=== PATIENT | female | born 1955 | race African-American/Black ===

== ENCOUNTER 2016-09-11 17:25 | Inpatient (IN) | payer OTHER ==
[~2016-09-11] VITALS: Ht 165.1 cm; Wt 75.9 kg
[~2016-09-11 17:25] MED LIST: CARV25TA79 PO; CLIN-73 PO; CLON0.3T PO; COLCHICINE PO; GEMF600T PO; HYDR-3498 PO; IND50 PO; MECL12.574 PO; NITR-58 PO; SPIR25TA76 PO
[2016-09-11] MEDS ORDERED: SOD CHLORIDE 0.9% 1,000 ML IV STA (22:02)
[2016-09-11] MEDS ORDERED: morphine 4 MG/ML VIAL IV STA (22:02)
[2016-09-11] MEDS ORDERED: ONDANSETRON 4 MG INJ IV STA (22:02)
--- NOTE | 2016-09-11 22:41 | RADRPT ---
PROCEDURE: CT Abdomen and pelvis without contrast. CLINICAL INDICATION: Abdominal pain. TECHNIQUE: CT scan of the abdomen and pelvis was performed on the [employer]ivid[employer] LightSpeed 6 4 slice VCT scanner. Contiguous axial images using 2.5 mm slice thickness were obtained from the tamara ng bases to the ischial tuberosities without intravenous contrast. Coronal and sagittal reformatted images were also obtained. Images were reviewed on the PACS workstation. Exam CTD/vol = 12.77 mGy. Total exam DLP = 599.13 mGy-cm. COMPARISON: None. FINDINGS: Evaluation of the lung bases demonstrates a small calcified granuloma within the left lower lobe. Abdomen: The liver is normal in size. There is no focal mass or dilatation of the biliary tree. T he gallbladder is not distended. A small gallstone is identified. The spleen, pancreas and bilatera l adrenal glands are within normal limits. Bilateral kidneys are normal in size with a small cyst w ithin the upper pole of the left kidney. There is mild renal cortical scarring bilaterally. There is a 1 mm calculus within the lower pole of the left kidney. There is no radiopaque ureteral calcul us identified. There is no hydronephrosis or hydroureter. There is no retroperitoneal adenopathy. The abdominal aorta is of normal caliber. There is a distended appendix posterior to the cecum measuring up to 12 mm in diameter with minimal adjacent stranding. There is moderate retained stool within the colon. There is no bowel obstructi on or free air. There are few scattered colonic diverticuli without evidence of diverticulitis. Th ere is no ascites. Pelvis: The bladder is unremarkable. The uterus and adnexa are within normal limits. There is no significant pelvic adenopathy or free fluid. Evaluation of the osseous structures demonstrates no suspicious lytic or blastic lesion. IMPRESSION: Acute retrocecal appendicitis. Moderate retained stool within the colon. Few scattered colonic diverticuli without evidence of diverticulitis. Cholelithiasis. Nonobstructing left renal calculus. A call report was made to Dr. Carreno at 10:40 p.m. .Manjinder Kramer MD, Date Time Electronically viewed and signed by .Manjinder Kramer MD, on 09/11/2016 22:41 .T/
[2016-09-11 22:53] LABS: BASOPHIL # 0.2 10^3/ul (0.0-0.1); BASOPHILS % 2.4 % (0.0-2.0); EOSINOPHILS # 0.1 10^3/ul (0.0-0.5); EOSINOPHILS % 1.1 % (0.0-7.0); HEMATOCRIT 31.1 % (37.0-47.0); HEMOGLOBIN 10.2 g/dl (12.0-16.0); LYMPHOCYTES # 2.5 10^3/ul (0.8-2.9); LYMPHOCYTES % 38.9 % (15.0-51.0); MEAN CORPUSCULAR HEMOGLOBIN 29.1 pg (29.0-33.0); MEAN CORPUSCULAR HGB CONC 32.7 g/dl (32.0-37.0); MEAN CORPUSCULAR VOLUME 88.9 fl (82.0-101.0); MEAN PLATELET VOLUME 8.5 fl (7.4-10.4); MONOCYTE # 0.9 10^3/ul (0.3-0.9); MONOCYTES % 13.7 % (0.0-11.0); NEUTROPHIL # 2.8 10^3/ul (1.6-7.5); NEUTROPHILS % 43.9 % (39.0-77.0); PLATELET COUNT 216 10^3/UL (140-440); UNCORRECTED WBC 6.4 10^3/ul (4.8-10.8); WHITE BLOOD COUNT 6.4 10^3/ul (4.8-10.8)
[2016-09-11] MEDS ORDERED: CLON0.2T5 PO (22:54)
[2016-09-11] MEDS ORDERED: ZOLP10TA PO (22:55)
[2016-09-11] MEDS ORDERED: CARV25TA79 PO (22:56)
[2016-09-11 22:58] LABS: ALBUMIN 4.1 g/dl (3.3-4.9)
[2016-09-11 23:00] LABS: CREATININE 0.96 mg/dl (0.44-1.00)
[2016-09-11] MEDS ORDERED: CEFTRIAXONE 1 GM/50 ML (PMX) 50 ML IVPB ONE (23:00)
[2016-09-11] MEDS ORDERED: metroNIDAZOLE 500 MG/NS (PMX) 100 ML IVPB ONE (23:00)
[2016-09-11] MEDS ORDERED: SOD CHLORIDE 0.9% 1,000 ML IV ONE (23:00)
[2016-09-11 23:01] LABS: ALBUMIN/GLOBULIN RATIO 1.05; BILIRUBIN,INDIRECT 0.1 mg/dl (0-1.1); BILIRUBIN,TOTAL 0.1 mg/dl (0.2-1.3); CALCIUM 9.3 mg/dl (8.4-10.2)
[2016-09-11 23:05] LABS: CONDITION 1; LH ANALYZER COMMENTS 1
[2016-09-11] MEDS ORDERED: ACETAMINOPHEN 325 MG TAB PO PRN (23:30)
[2016-09-11] MEDS ORDERED: ONDANSETRON 4 MG INJ IV PRN (23:30)
[2016-09-11 23:41] LABS: INR 1.09; PROTIME 14.1 Sec (12.2-14.2); PT RATIO 1.1
[2016-09-11 23:47] LABS: PARTIAL THROMBOPLASTIN TIME 30.3 Sec (25.0-35.0)
[2016-09-12] VITALS (32 sets, daily range): BP systolic 132–217; BP diastolic 60–102; PULSE 50–78; RESP 15–23; Ht 165.1 cm; Wt 75.9 kg
[2016-09-12] MEDS ORDERED: morphine 10 MG INJ IM PRN (01:00)
[2016-09-12] MEDS: SOD CHLORIDE 0.9% 1,000 ML IV SCH ×2 (01:00→07:33)
[2016-09-12] MEDS ORDERED: morphine 2 MG INJ IV PRN ×2 (01:18→04:30)
[2016-09-12] MEDS: ONDANSETRON 4 MG INJ IV PRN ×3 (01:21→12:48)
[2016-09-12 05:32] LABS: BASOPHILS % 0.5 % (0.0-2.0); EOSINOPHILS # 0.1 10^3/ul (0.0-0.5); EOSINOPHILS % 1.4 % (0.0-7.0); HEMATOCRIT 28.8 % (37.0-47.0); HEMOGLOBIN 9.4 g/dl (12.0-16.0); LYMPHOCYTES # 2.6 10^3/ul (0.8-2.9); LYMPHOCYTES % 37.9 % (15.0-51.0); MEAN CORPUSCULAR HEMOGLOBIN 29.3 pg (29.0-33.0); MEAN CORPUSCULAR HGB CONC 32.8 g/dl (32.0-37.0); MEAN CORPUSCULAR VOLUME 89.1 fl (82.0-101.0); MEAN PLATELET VOLUME 8.9 fl (7.4-10.4); MONOCYTE # 0.7 10^3/ul (0.3-0.9); MONOCYTES % 10.8 % (0.0-11.0); NEUTROPHIL # 3.3 10^3/ul (1.6-7.5); NEUTROPHILS % 49.4 % (39.0-77.0); PLATELET COUNT 177 10^3/UL (140-440); RED BLOOD COUNT 3.23 10^6/ul (4.20-5.40); RED CELL DISTRIBUTION WIDTH 16.7 % (11.5-14.5); UNCORRECTED WBC 6.8 10^3/ul (4.8-10.8); WHITE BLOOD COUNT 6.8 10^3/ul (4.8-10.8)
[2016-09-12 05:48] LABS: POTASSIUM 3.8 mmol/L (3.5-5.1)
[2016-09-12 05:50] LABS: CREATININE 0.87 mg/dl (0.44-1.00)
[2016-09-12 05:51] LABS: CALCIUM 8.7 mg/dl (8.4-10.2)
[2016-09-12 05:57] LABS: CONDITION 1; LH ANALYZER COMMENTS 1
[2016-09-12] MEDS ORDERED: BUPIVACAINE 0.25%/EPI (SDV) 30 ML INJ ONE (07:38)
[2016-09-12] MEDS ORDERED: PIPER-TAZO 3.375 GM IV (PMX) 100 ML ONE (07:44)
[2016-09-12] MEDS ORDERED: MIDAZOLAM 1 MG/ML 2 ML INJ ONE (08:01)
[2016-09-12 09:06] LABS: ADD UMIC YES; URINE BILIRUBIN (Dip) NEGATIVE (NEGATIVE); URINE BLOOD (Dip) NEGATIVE (NEGATIVE); URINE COLOR LT. YELLOW (YELLOW); URINE GLUCOSE (Dip) NEGATIVE (NEGATIVE); URINE KETONES (Dip) NEGATIVE (NEGATIVE); URINE LEUKOCYTE ESTERASE (Dip) TRACE (NEGATIVE); URINE NITRITE (Dip) NEGATIVE (NEGATIVE); URINE TOTAL PROTEIN (Dip) NEGATIVE (NEGATIVE); URINE UROBILINOGEN (Dip) 0.2 E.U./dL (0.1-1.0)
[2016-09-12] MEDS ORDERED: FENTAnyl 50 MCG/ML VIAL IV PRN (09:30)
[2016-09-12] MEDS ORDERED: ONDANSETRON 4 MG INJ IV PRN (09:30)
[2016-09-12] MEDS ORDERED: MEPERIDINE 25 MG INJ IV PRN (09:30)
[2016-09-12] MEDS ORDERED: DIPHENHYDRAMINE 50 MG INJ IV PRN (09:30)
[2016-09-12] MEDS ORDERED: morphine (1 MG/ML) 10ML SYRINGE IV PRN ×2 (09:30)
[2016-09-12 09:33] LABS: SQUAMOUS EPITHELIAL CELL,UR OCCASIONAL; URINE RBCS 0-2 /HPF (0)
[2016-09-12] MEDS ORDERED: ONDANSETRON 4 MG INJ ONE (09:44)
[2016-09-12] MEDS ORDERED: PROPOFOL 20 ML ONE (09:44)
[2016-09-12] MEDS ORDERED: NEOSTIGMINE 3 MG/3 ML SYRINGE ONE (09:44)
[2016-09-12] MEDS ORDERED: LIDOCAINE 2% (SDV) 5 ML INJ ONE (09:44)
[2016-09-12] MEDS ORDERED: ROCURONIUM 50 MG INJ ONE (09:44)
[2016-09-12] MEDS ORDERED: GLYCOPYRROLATE 0.4 MG INJ ONE (09:44)
[2016-09-12] MEDS ORDERED: BISACODYL 10 MG SUPP PR PRN (10:00)
[2016-09-12] MEDS ORDERED: HYDROCODONE/APAP (5/325) TAB PO PRN (10:00)
[2016-09-12] MEDS ORDERED: NA PHOSPHATE/BIPHOS 133 ML ENEMA PR PRN (10:00)
[2016-09-12] MEDS ORDERED: hydrALAzine 20 MG INJ IV PRN (10:00)
[2016-09-12] MEDS ORDERED: hydrALAzine 20 MG INJ ONE (10:01)
--- NOTE | 2016-09-12 10:15 | HP ---
Date/Time of Note Date/Time of Note DATE: 09/12/16 TIME: 10:13 Assessment/Plan VTE Prophylaxis VTE Prophylaxis Intervention: LMWH Lines/Catheters IV Catheter Type (from [facility]): Peripheral IV Assessment/Plan Chief Complaint/Hosp Course 1) appendicitis - to have appendectomy - IV antibiotics Problems: HPI/ROS Admit Date/Time Admit Date/Time Sep 11, 2016 at 23:06 Hx of Present Illness Patient admitted for abdominal pain and was diagnosed with appendicitis per abdominal CT. Patient is away from room so unable to obtain further history PMH/Family/Social Past Medical History Unable to obtain history as patient is away from room, possibly having appendectomy Social History Unable to obtain Smoking Status: Never smoker Exam/Review of Systems Vital Signs Vitals Vital Signs Date Time Temp Pulse Resp B/P Pulse Ox O2 Delivery O2 Flow Rate FiO2 09/12/16 09:56 78 20 206/96 100 Mask 8.0 09/12/16 09:47 98.5 Intake and Output 09/11/16 09/11/16 09/12/16 15:00 23:00 07:00 Intake Total 1725 ml Output Total 800 ml Balance 925 ml Exam Exam Unable to examine patient as she is away from room Labs Result Diagram: 09/12/16 0416 09/12/16 0416 Medications Medications Current Medications Ondansetron HCl (Zofran Inj) 4 mg Q6H PRN IV NAUSEA AND/OR VOMITING Last administered on 09/12/16at 01:21; Admin Dose 4 MG; Start 09/12/16 at 01:00 Clonidine (Catapres) 0.1 mg Q6H PRN PO SBP greater than 160 Last administered on 09/12/16at 01:22; Admin Dose 0.1 MG; Start 09/12/16 at 01:00 Zolpidem Tartrate (Ambien) 5 mg HS PRN PO INSOMNIA; Start 09/12/16 at 01:00 Morphine Sulfate 2 mg 2 mg Q2H PRN IV PAIN Last administered on 09/12/16at 04: 41; Admin Dose 2 MG; Start 09/12/16 at 04:30 Potassium Chloride/Dextrose/ Sod Cl (D5-1/2ns + KCl 20 Meq) 1,000 ml @ 100 mls/ hr Q10H IV ; Start 09/12/16 at 09:40 Acetaminophen/ Hydrocodone Bitart (Rydal (5/325)) 1 tab Q4H PRN PO PAIN LEVEL 4 -7; Start 09/12/16 at 10:00 Acetaminophen/ Hydrocodone Bitart (Rydal (5/325)) 2 tab Q4H PRN PO PAIN LEVEL 7 -10; Start 09/12/16 at 10:00 Hydromorphone HCl (Dilaudid) 0.5 mg Q2 PRN IV PAIN; Start 09/12/16 at 10:00 Hydromorphone HCl (Dilaudid) 1 mg Q2 PRN IV PAIN; Start 09/12/16 at 10:00 Docusate Sodium (Colace) 100 mg BID PRN PO CONSTIPATION; Start 09/12/16 at 10: 00 Bisacodyl (Dulcolax Supp) 10 mg BID PRN [place] CONSTIPATION; Start 09/12/16 at 10: 00 Sodium Biphosphate/ Sodium Phosphate (Fleet Enema) 133 ml BID PRN [place] CONSTIPATION; Start 09/12/16 at 10:00 Famotidine (Pepcid Iv) 20 mg DAILY IV ; Start 09/13/16 at 09:00 Enoxaparin Sodium (Lovenox) 40 mg DAILY SC ; Start 09/13/16 at 09:00 ERNESTO SHEPPARD Sep 12, 2016 10:15
--- NOTE | 2016-09-12 10:33 | CONS ---
Date/Time of Note Date/Time of Note DATE: 09/12/16 TIME: 07:52 Assessment/Plan Assessment/Plan Additional Assessment/Plan [facility] INITIAL INPATIENT CONSULTATION NOTE ASSESSMENT AND PLAN: A very-pleasant 61-year-old lady with multiple comorbid issues (see below) admitted through the emergency department with diagnosis of acute appendicitis based on symptoms as well as CT scan. Patient reports having this pain for last 2 weeks and for this reason there is a small chance that this may not be appendicitis, but given the overall clinical picture, I believe that an appendectomy is indicated. I explained to the patient that there is a 5 % chance that her appendix might be normal but that clinically, we have enough reason to offer her an operation. I described the operation in detail as well as the risks, benefits, and alternatives and answered all the patient's questions to the best my ability. I believe that the patient appears to understand and agrees to proceed. Note that there was no family present during any my discussions with the patient. With above assessment, I've recommended the followin. To the operating room for above Thank you very much for having me involved in the care of this very pleasant lady and I'm certain her wonderful family. I will continue to follow her along with you closely and will be available to answer any questions at area code [phone]. TOTAL VISIT TIME: 45 minutes of which more than half was spent in [id number] discussion with the patient, as well as coordination of care between multiple physicians and providers. Disclaimer: Inadvertent spelling and grammatical errors are likely due to EHR/ dictation software use and do not reflect on the quality of delivered patient care. Also, please note that the electronic time recorded on this node does not necessarily reflect the actual time of the visit. PLACE OF SERVICE: [facility], preoperative area DATE OF CONSULTATION: 09/12/2016 HISTORY OF PRESENT ILLNESS: The patient is a very pleasant 61-year-old lady with multiple comorbid issues including gout, diet-controlled diabetes, hypertension and hyperlipidemia, and a number of other problems (see below) who was admitted through the emergency department with two-week history of right lower quadrant abdominal pain that worsened over the last 24 hours. No significant associated nausea or vomiting. No change in bowel or bladder habits or blood in the stool or urine. CT scan demonstrated thickened appendix. Last bowel movement was yesterday as well as flatus. No changes in hearing or vision, difficulty with breathing or swallowing, prior cardiopulmonary disease new skin rashes, joint pain, musculoskeletal disease, neurologic, psychiatric, or psychologic problems other than her normal. Patient described the pain as a right lower quadrant type pain without radiation, between 3 out of 10 currently after pain medications and mostly dull in character. At my visit, the patient did not have any significant pain complaints. PAST MEDICAL HISTORY 1. Gallop 2. Arthritis 3. Bilateral lower extremity hammertoes 4. Torn meniscus in the left knee 5. Chronic back pain 6. Hypertension 7. Hypercholesterolemia 8. Recurrent dizziness None. Hypertriglyceridemia 10. Abnormal Pap smear at age 30 with a negative colposcopy 11. History of hemorrhoids 12. Diet-controlled diabetes in the past 13. BMI 27.8 PAST SURGICAL HISTORY 1. Right carpal tunnel release 2. Toe surgeries on the right 3. Colonoscopy 02/28/2009 ALLERGIES: 1. PENICILLIN. 2. LATEX. 3 AMLODIPINE. 4. MARCELO INHIBITORS. MEDICATIONS Please see EMR. SOCIAL HISTORY: The patient lives with family. - Tob; occ ETOH; - IVDU FAMILY HISTORY: Stroke, heart attack. Maternal grandmother had leukopenia. There are no other significant medical, surgical or oncologic issues in the family as reported by the patient or reflected in the chart. REVIEW OF SYSTEMS: No other pertinent positives or pertinent negatives in a complete 14 point review of systems PHYSICAL EXAMINATION GENERAL: The patient appears to be a very pleasant young lady of - [place] descent lying in bed, appearing stated age, BMI 27.8 and otherwise in no acute distress. VITAL SIGNS: AVSS (please also see below) HEENT: Normocephalic and atraumatic. Extraocular muscles and hearing are grossly intact bilaterally and symmetrically. Sclerae are nonicteric. Oral cavity is clear; oral mucosa appear to be pink and moist. Dentition: Poor with several missing teeth and wearing dentures. NECK: Supple. There is no lymphadenopathy or JVD. There is no submental, submandibular or supraclavicular lymphadenopathy. CHEST: Rises symmetrically with each breath; patient is breathing comfortably. There are no audible wheezes, rales or rhonchi on the gross exam. HEART: Pulse is regular and palpable on the right wrist. Capillary refill is normal. Carotid pulses are palpable bilaterally and symmetrically in the neck. EXTREMITIES: Lower extremities contain no pitting edema around the ankles bilaterally and symmetrically. ABDOMEN: Abdomen is soft, mild to moderately tender to palpation in the right lower quadrant and nondistended. No evidence of ascites, organomegaly, caput medusae, engorged subcutaneous veins, or other abnormalities. There are no peritoneal signs or guarding. SKIN: Appears to be pink and feels warm to touch. NEUROLOGIC: Awake, alert, and follows commands appropriately. LABORATORY DATA: See below IMAGING: See electronic chart. Please note that I've personally reviewed all pertinent available images and I agree in general with their overall reported findings. Consultation Date/Type/Reason Admit Date/Time Sep 11, 2016 at 23:06 Social History Smoking Status: Never smoker Exam/Review of Systems Vital Signs Vitals Vital Signs Date Time Temp Pulse Resp B/P Pulse Ox O2 Delivery O2 Flow Rate FiO2 09/12/16 10:22 66 16 170/86 100 Nasal Cannula 2.0 09/12/16 09:47 98.5 Intake and Output 09/11/16 09/11/16 09/12/16 15:00 23:00 07:00 Intake Total 1725 ml Output Total 800 ml Balance 925 ml Results Result Diagram: 09/12/16 0416 09/12/16 0416 Results 24 hrs Laboratory Tests Test 09/11/16 22:40 09/12/16 04:16 Activated Partial Thromboplast Time 30.3 Alanine Aminotransferase (ALT/SGPT) 14 Albumin 4.1 Albumin/Globulin Ratio 1.05 Alkaline Phosphatase 63 Anion Gap 17 H 15 Aspartate Amino Transf (AST/SGOT) 24 Basophils # 0.2 H 0.0 Basophils % 2.4 H 0.5 Blood Morphology Comment Blood Urea Nitrogen 19 15 Calcium Level 9.3 8.7 Carbon Dioxide Level 26 25 Chloride Level 103 107 Creatinine 0.96 0.87 Direct Bilirubin 0.00 Eosinophils # 0.1 0.1 Eosinophils % 1.1 1.4 Globulin 3.90 H Glucose Level 83 86 Hematocrit 31.1 L 28.8 L Hemoglobin 10.2 L 9.4 L INR International Normalized Ratio 1.09 Indirect Bilirubin 0.1 Lipase 366 H Lymphocytes # 2.5 2.6 Lymphocytes % 38.9 37.9 Mean Corpuscular Hemoglobin 29.1 29.3 Mean Corpuscular Hemoglobin Concent 32.7 32.8 Mean Corpuscular Volume 88.9 89.1 Mean Platelet Volume 8.5 8.9 Monocytes # 0.9 0.7 Monocytes % 13.7 H 10.8 Neutrophils # 2.8 3.3 Neutrophils % 43.9 49.4 Nucleated Red Blood Cells # 0.0 0.0 Nucleated Red Blood Cells % 0.0 0.0 Platelet Count 216 # 177 Potassium Level 4.0 3.8 Prothrombin Time 14.1 Prothrombin Time Ratio 1.1 Red Blood Count 3.50 L 3.23 L Red Cell Distribution Width 17.0 H 16.7 H Sodium Level 142 143 Total Bilirubin 0.1 L Total Protein 8.0 White Blood Count 6.4 6.8 Medications Medications Current Medications Ondansetron HCl (Zofran Inj) 4 mg Q6H PRN IV NAUSEA AND/OR VOMITING Last administered on 09/12/16at 10:14; Admin Dose 4 MG; Start 09/12/16 at 01:00 Clonidine (Catapres) 0.1 mg Q6H PRN PO SBP greater than 160 Last administered on 09/12/16at 01:22; Admin Dose 0.1 MG; Start 09/12/16 at 01:00 Zolpidem Tartrate (Ambien) 5 mg HS PRN PO INSOMNIA; Start 09/12/16 at 01:00 Morphine Sulfate 2 mg 2 mg Q2H PRN IV PAIN Last administered on 09/12/16at 04: 41; Admin Dose 2 MG; Start 09/12/16 at 04:30 Potassium Chloride/Dextrose/ Sod Cl (D5-1/2ns + KCl 20 Meq) 1,000 ml @ 100 mls/ hr Q10H IV ; Start 09/12/16 at 09:40 Acetaminophen/ Hydrocodone Bitart (Cochise (5/325)) 1 tab Q4H PRN PO PAIN LEVEL 4 -7; Start 09/12/16 at 10:00 Acetaminophen/ Hydrocodone Bitart (Cochise (5/325)) 2 tab Q4H PRN PO PAIN LEVEL 7 -10; Start 09/12/16 at 10:00 Hydromorphone HCl (Dilaudid) 0.5 mg Q2 PRN IV PAIN; Start 09/12/16 at 10:00 Hydromorphone HCl (Dilaudid) 1 mg Q2 PRN IV PAIN; Start 09/12/16 at 10:00 Docusate Sodium (Colace) 100 mg BID PRN PO CONSTIPATION; Start 09/12/16 at 10: 00 Bisacodyl (Dulcolax Supp) 10 mg BID PRN [place] CONSTIPATION; Start 09/12/16 at 10: 00 Sodium Biphosphate/ Sodium Phosphate (Fleet Enema) 133 ml BID PRN [place] CONSTIPATION; Start 09/12/16 at 10:00 Famotidine (Pepcid Iv) 20 mg DAILY IV ; Start 09/13/16 at 09:00 Enoxaparin Sodium 40 mg 40 mg DAILY SC ; Start 09/13/16 at 09:00 Ceftriaxone Sodium 50 ml @ 100 mls/hr Q24H IVPB ; Start 09/12/16 at 10:30; Status UNV Metronidazole (Flagyl 500 Mg (Pmx)) 100 ml @ 100 mls/hr Q6 IVPB ; Start at 12:00 NUBIA VILLAR M.D. Sep 12, 2016 10:33
--- NOTE | 2016-09-12 10:38 | OPR ---
Date/Time of Note Date/Time of Note DATE: 09/12/16 TIME: 10:37 Operative Report Operative Findings [facility] INPATIENT OPERATIVE NOTE PLACE OF SERVICE: [facility] DATE OF SURGERY: 09/12/2016 PREOPERATIVE DIAGNOSIS: 1. Acute appendicitis 2. Arthritis 3. Bilateral lower extremity hammertoes 4. Torn meniscus in the left knee 5. Chronic back pain 6. Hypertension 7. Hypercholesterolemia 8. Recurrent dizziness None. Hypertriglyceridemia 10. Abnormal Pap smear at age 30 with a negative colposcopy 11. History of hemorrhoids 12. Diet-controlled diabetes in the past 13. BMI 27.8 14. Gout 15. Right carpal tunnel release 16. Toe surgeries on the right 17. Colonoscopy 02/28/2009 POSTOPERATIVE DIAGNOSIS: 1. Acute on chronic appendicitis 2. Arthritis 3. Bilateral lower extremity hammertoes 4. Torn meniscus in the left knee 5. Chronic back pain 6. Hypertension 7. Hypercholesterolemia 8. Recurrent dizziness None. Hypertriglyceridemia 10. Abnormal Pap smear at age 30 with a negative colposcopy 11. History of hemorrhoids 12. Diet-controlled diabetes in the past 13. BMI 27.8 14. Gout 15. Right carpal tunnel release 16. Toe surgeries on the right 17. Colonoscopy 02/28/2009 OPERATION: 1. Laparoscopic appendectomy 2. Repair of umbilical hernia that was incidentally discovered during the operation SURGEON: Nubia Meza M.D. VBA DEVELOPER: Dawit ANESTHESIA: General endotracheal tube anesthesia ANESTHESIOLOGIST: Nilda Bonner M.D. BRIEF SUMMARY: An otherwise uncomplicated laparoscopic appendectomy was performed with findings of non-perforated acute on chronic retrocecal appendicitis. BRIEF HISTORY: The patient is a very pleasant 61-year-old lady with multiple comorbid issues (see below) admitted through the emergency department with diagnosis of acute appendicitis based on symptoms as well as CT scan. Patient reports having this pain for last 2 weeks and for this reason there is a small chance that this may not be appendicitis, but given the overall clinical picture , I believe that an appendectomy is indicated. I explained to the patient that there is a 5% chance that her appendix might be normal but that clinically, we have enough reason to offer her an operation. I described the operation in detail as well as the risks, benefits, and alternatives and answered all the patient's questions to the best my ability. I believe that the patient appears to understand and agrees to proceed. Note that there was no family present during any my discussions with the patient. For a detailed report of my consultation with patient, please refer to my separate consultation note. STATEMENT OF THE INFORMED CONSENT: The patient appeared to understand the risks of the operation to include, but not be limited to risk of postoperative pain and scar tissue, possible infection or bleeding requiring other interventions such as opening the wound, placement of drainage catheters, or other operative interventions; possible injury to surrounding to structures including bowel, bladder, bile duct, or blood vessels, or solid organs such as liver, kidney, or pancreas requiring other interventions or procedures; possible leakage of bowel from anastomotic sites or suture lines causing significant increase in morbidity and mortality and requiring multiple interventions including but not limited to, placement of drainage catheters, imaging studies, as well as operative interventions; possible other source of sepsis such as urinary tract infections or pneumonias, or other sources of potentially life threatening problems such as deep venous thrombus formation causing pulmonary embolism, myocardial arrhythmias and infarctions, and even . After careful consideration of all their options, the patient and family appeared to understand and wished to proceed with surgery. DESCRIPTION OF PROCEDURE: After obtaining informed consent, the patient was brought into the operating room and was placed in a normal supine position, where successful general endotracheal tube anesthesia was performed. Intravenous access was already in place and intravenous antimicrobials had been appropriately chosen and dosed prior to the operation. The patient's abdominal skin was prepped and draped from the nipple line down to the level of the upper thighs in the usual sterile fashion. We then called a surgical time-out where the patient's identification, date of , nature of the operation, allergies , presence of intravenous antimicrobials, presence of needed equipment, and any other concerns were reviewed and agreed upon by all members of the operating room team. We then started the operation by placing a 5 mm skin incision in the left lower quadrant and then introduced a 5 mm [employer] trocar into the peritoneal space, visualizing all the layers of the abdominal wall as we entered. Note that there was no indication of any injury to underlying structures with our entry into the peritoneal space. We insufflated the abdominal cavity to a maximum pressure of 15 mmHg and again inspected the area of insertion and ensured no obvious injury to underlying structures prior to inspecting the abdominal cavity and showing no obvious pus, bowel contents, or other abnormal features. We could not see the appendix very well. We could see that the patient had a 3 mm umbilical hernia as well. We, therefore, injected the future sites of our other trocars with 0.25% Marcaine with epinephrine and placed a 5 mm [employer] trocar into the midline suprapubic area, taking care not to injure the bladder. Note that the patient had not urinated prior to the operation, and bladder was somewhat full. We also placed a 12 mm trocar in the umbilical midline area, all under direct visualization. With our instruments in place, we had excellent visualization and access to the right lower quadrant. We then identified the appendix, which was inflamed but had a normal base coming out of the cecum. It appeared to be retrocecal and the distal portion of the appendix was adhesed onto the body of the cecum. I then went ahead and used judicious amount of cautery as well as mostly blunt dissection to circumferentially isolate the base of the appendix and then transected this using one firing of the white load of the Endo-DALY stapler. We also repeated the firing on the mesentery of the appendix after lysis of adhesions using cautery and blunt dissection to free the body of the appendix attachments onto the cecum, and completely disconnected the organ from the colon, delivered this out through the 12 mm trocar site inside of an EndoCatch bag without having to enlarge the fascial defect as well as without contaminating the wound. The specimen was sent to Pathology for further analysis. We then ensured adequate hemostasis and bile stasis, removed all our equipment including the pneumoperitoneum from the abdominal cavity prior to closing the infraumbilical fascia after we freed up the edges of the hernia defect with cautery, followed by closure with with 1 [id number] 0 Vicryl suture on a UR-6 needle, washing the wounds with copious amounts of normal saline, injecting the initial insertion point of the trocar with 0.25% Marcaine with epinephrine, and then closing the skin using interrupted 4-0 Monocryl sutures. Light dressing was then applied. At the end of the operation, both the sponge count and needle count were reportedly correct x2. The patient tolerated the procedure without any reported complications. ESTIMATED BLOOD LOSS: 5 mL BLOOD OR BLOOD PRODUCT TRANSFUSIONS: None to my knowledge. SPECIMENS: 1. Appendix COMPLICATIONS: None. DISPOSITION: Recovery area. Disclaimer: Inadvertent spelling and grammatical errors are likely due to EHR/ dictation software use and do not reflect on the quality of delivered patient care. NUBIA MEZA M.D. Sep 12, 2016 10:38
[2016-09-12] MEDS: D5W-0.45 NACL + KCL 20 MEQ 1,000 ML IV SCH ×2 (12:42→19:40)
[2016-09-12] MEDS: HYDROmorphONE 1 MG/ML SYG IV PRN ×2 (12:48→20:47)
[2016-09-12] MEDS: metroNIDAZOLE 500 MG/NS (PMX) 100 ML IVPB SCH ×2 (12:48→17:48)
[2016-09-12] MEDS: DOCUSATE SODIUM 100 MG CAP PO PRN (14:24)
[2016-09-12] MEDS: HYDROCODONE/APAP (5/325) TAB PO PRN (15:43)
[2016-09-12] MEDS: LORAZEPAM 2 MG INJ IV PRN (15:45)
[2016-09-12] MEDS: CEFTRIAXONE 1 GM/50 ML (PMX) 50 ML IVPB SCH (23:27)
[2016-09-13] MEDS: HYDROmorphONE 1 MG/ML SYG IV PRN ×6 (00:43→21:16)
[2016-09-13] MEDS: metroNIDAZOLE 500 MG/NS (PMX) 100 ML IVPB SCH ×4 (00:45→18:34)
[2016-09-13 01:00] VITALS: BP 132/58; PULSE 62; RESP 18
[2016-09-13] MEDS: D5W-0.45 NACL + KCL 20 MEQ 1,000 ML IV SCH ×2 (01:02→16:22)
[2016-09-13 05:14] LABS: EOSINOPHILS # 0.1 10^3/ul (0.0-0.5); EOSINOPHILS % 2.1 % (0.0-7.0); HEMOGLOBIN 9.3 g/dl (12.0-16.0); LYMPHOCYTES # 1.8 10^3/ul (0.8-2.9); LYMPHOCYTES % 33.5 % (15.0-51.0); MEAN CORPUSCULAR HEMOGLOBIN 29.5 pg (29.0-33.0); MEAN CORPUSCULAR HGB CONC 33.2 g/dl (32.0-37.0); MEAN CORPUSCULAR VOLUME 88.8 fl (82.0-101.0); MEAN PLATELET VOLUME 8.5 fl (7.4-10.4); MONOCYTE # 0.6 10^3/ul (0.3-0.9); MONOCYTES % 10.7 % (0.0-11.0); NEUTROPHIL # 2.9 10^3/ul (1.6-7.5); NEUTROPHILS % 53.7 % (39.0-77.0); PLATELET COUNT 191 10^3/UL (140-440); RED BLOOD COUNT 3.15 10^6/ul (4.20-5.40); UNCORRECTED WBC 5.3 10^3/ul (4.8-10.8); WHITE BLOOD COUNT 5.3 10^3/ul (4.8-10.8)
[2016-09-13 05:43] LABS: CREATININE 0.85 mg/dl (0.44-1.00)
[2016-09-13 06:00] VITALS: BP 150/67; PULSE 68; RESP 18
[2016-09-13 06:33] LABS: CONDITION 1; LH ANALYZER COMMENTS 1; NUCLEATED RED BLOOD CELLS # 0.1 10^3/ul (0.0-0.0)
[2016-09-13 08:38] VITALS: BP 133/60; RESP 18
[2016-09-13] MEDS: FAMOTIDINE 20 MG INJ IV SCH (09:05)
[2016-09-13] MEDS: ENOXAPARIN 40 MG/0.4 ML SYG SC SCH (09:07)
[2016-09-13] MEDS: HYDROCODONE/APAP (5/325) TAB PO PRN ×3 (09:28→23:40)
[2016-09-13] MEDS: ONDANSETRON 4 MG INJ IV PRN (11:27)
--- NOTE | 2016-09-13 12:11 | PN ---
Date/Time of Note Date/Time of Note DATE: 09/13/16 TIME: 12:07 Assessment/Plan Lines/Catheters IV Catheter Type (from Nrs): Peripheral IV Assessment/Plan Assessment/Plan [facility] Progress Note Date of Service: 09/13/16 Today's Impression & Plan: Overall doing well post op without major issues. No major wound problems. Patient still has significant amount of abdominal pain and in my opinion, could benefit from 1 more day in the hospital. With above assessment, I've recommended the following for today: 1. Keep in-house 2. Treat pain 3. Increase activity 4. Increase incentive spirometry 5. Possible discharge plans for tomorrow 6. Please include the following in the patient's discharge instructions: "Please call [phone] if any of fever, nausea, vomiting, discharge from wound, wound redness, increase or sudden pain, blood in stool or vomit, or any other unusual signs or symptoms. Also, please call the same number in a few days to schedule an appointment for your follow up visit. Patient may remove dressings tomorrow. Showers OK starting tomorrow. No swimming , hot tub or bath for 2 weeks. No lifting more than 25 lbs for 8 weeks." Thank you again for your great care of this very pleasant patient and wonderful family. If there are any questions, please feel free to call me at [phone]. TOTAL VISIT TIME: 20 minutes of which more than half was spent in [id number] discussion with the patient, possibly including family, as well as coordination of care between multiple physicians and providers. Disclaimer: Inadvertent spelling or grammatical errors are likely due to EHR/ dictation software use and do not reflect on the overall quality of patient care. Updated Clinical Summary: The patient is a very pleasant 61-year-old lady with multiple comorbid issues ( see below) admitted through the emergency department with diagnosis of acute appendicitis based on symptoms as well as CT scan. Patient reports having this pain for last 2 weeks and for this reason there is a small chance that this may not be appendicitis, but given the overall clinical picture, I believe that an appendectomy is indicated. I explained to the patient that there is a 5% chance that her appendix might be normal but that clinically, we have enough reason to offer her an operation. S/p an otherwise uncomplicated laparoscopic appendectomy and repair of an incidentally discovered umbilical hernia on 09/12 with findings of non-perforated acute on chronic retrocecal appendicitis. Comorbidities/PMHx List: 1. Acute on chronic appendicitis, s/p an otherwise uncomplicated laparoscopic appendectomy and repair of an incidentally discovered umbilical hernia on 09/12 with findings of non-perforated acute on chronic retrocecal appendicitis. 2. Arthritis 3. Bilateral lower extremity hammertoes 4. Torn meniscus in the left knee 5. Chronic back pain 6. Hypertension 7. Hypercholesterolemia 8. Recurrent dizziness None. Hypertriglyceridemia 10. Abnormal Pap smear at age 30 with a negative colposcopy 11. History of hemorrhoids 12. Diet-controlled diabetes in the past 13. BMI 27.8 14. Gout 15. Right carpal tunnel release 16. Toe surgeries on the right 17. Colonoscopy 02/28/2009 Subjective: No major events or complaints; no abd pain and under control with medications; no n/v/d; no sob or cp; + flatus; + BM and normal; + activity Objective: Vitals: See below Exam: GENERAL: On exam, the patient was sitting in a chair and appeared to be comfortable and in no acute distress. ABDOMEN: Soft, tender to palpation around the incisions and in the right lower quadrant and nondistended. Incisions are clean, dry and intact without any evidence of erythema, edema, discharge, or hernia. There are no peritoneal signs or guarding. SKIN: Skin appears to be pink and feels warm to touch. NEUROLOGIC: Patient is awake, alert, and follows commands appropriately. Exam/Review of Systems Vital Signs Vitals Vital Signs Date Time Temp Pulse Resp B/P Pulse Ox O2 Delivery O2 Flow Rate FiO2 09/13/16 08:38 97.8 67 18 133/60 98 09/13/16 06:00 Room Air 09/12/16 19:40 2.0 Intake and Output 09/12/16 09/12/16 09/13/16 15:00 23:00 07:00 Intake Total 800 ml 740 ml 1500 ml Output Total 5 ml 200 ml Balance 795 ml 540 ml 1500 ml Results Result Diagram: 09/13/16 0425 09/13/16 0425 NUBIA VILLAR M.D. Sep 13, 2016 12:11
--- NOTE | 2016-09-13 12:46 | PN ---
Date/Time of Note Date/Time of Note DATE: 09/13/16 TIME: 12:45 Assessment/Plan VTE Prophylaxis VTE Prophylaxis Intervention: LMWH Lines/Catheters IV Catheter Type (from Nrsg): Peripheral IV Assessment/Plan Chief Complaint/Hosp Course 1) appendicitis - to have appendectomy - IV antibiotics 2) neck pain - reassure Problems: Subjective 24 Hr Interval Summary Free Text/Dictation Patient complain of right neck pain, post op pain as well Exam/Review of Systems Vital Signs Vitals Vital Signs Date Time Temp Pulse Resp B/P Pulse Ox O2 Delivery O2 Flow Rate FiO2 09/13/16 08:38 97.8 67 18 133/60 98 09/13/16 06:00 Room Air 09/12/16 19:40 2.0 Intake and Output 09/12/16 09/12/16 09/13/16 15:00 23:00 07:00 Intake Total 800 ml 740 ml 1500 ml Output Total 5 ml 200 ml Balance 795 ml 540 ml 1500 ml Exam Constitutional: well developed Neck: supple Respiratory: clear to auscultation Cardiovascular: regular rate and rhythm Gastrointestinal: non-tender, soft Extremities: normal pulses Results Result Diagram: 09/13/16 0425 09/13/16 0425 Results 24 hrs Laboratory Tests Test 09/13/16 04:25 Anion Gap 16 Basophils # 0.0 Basophils % 0.0 Blood Morphology Comment Blood Urea Nitrogen 10 Calcium Level 9.0 Carbon Dioxide Level 25 Chloride Level 102 Creatinine 0.85 Eosinophils # 0.1 Eosinophils % 2.1 Glucose Level 111 Hematocrit 28.0 L Hemoglobin 9.3 L Lymphocytes # 1.8 Lymphocytes % 33.5 Mean Corpuscular Hemoglobin 29.5 Mean Corpuscular Hemoglobin Concent 33.2 Mean Corpuscular Volume 88.8 Mean Platelet Volume 8.5 Monocytes # 0.6 Monocytes % 10.7 Neutrophils # 2.9 Neutrophils % 53.7 Nucleated Red Blood Cells # 0.1 H Nucleated Red Blood Cells % 2.0 H Platelet Count 191 Potassium Level 4.0 Red Blood Count 3.15 L Red Cell Distribution Width 17.0 H Sodium Level 139 White Blood Count 5.3 # Medications Medications Current Medications Ondansetron HCl (Zofran Inj) 4 mg Q6H PRN IV NAUSEA AND/OR VOMITING Last administered on 09/13/16t 11:27; Admin Dose 4 MG; Start 09/12/16 at 01:00 Clonidine (Catapres) 0.1 mg Q6H PRN PO SBP greater than 160 Last administered on 09/12/16at 14:24; Admin Dose 0.1 MG; Start 09/12/16 at 01:00 Zolpidem Tartrate (Ambien) 5 mg HS PRN PO INSOMNIA; Start 09/12/16 at 01:00 Morphine Sulfate 2 mg 2 mg Q2H PRN IV PAIN Last administered on 09/12/16at 04: 41; Admin Dose 2 MG; Start 09/12/16 at 04:30 Potassium Chloride/Dextrose/ Sod Cl (D5-1/2ns + KCl 20 Meq) 1,000 ml @ 100 mls/ hr Q10H IV Last administered on 09/13/16 01:02; Admin Dose 100 MLS/HR; Start 09/12/16 at 09:40 Acetaminophen/ Hydrocodone Bitart ([place] (5/325)) 1 tab Q4H PRN PO PAIN LEVEL 4 -7; Start 09/12/16 at 10:00 Acetaminophen/ Hydrocodone Bitart ([place] (5/325)) 2 tab Q4H PRN PO PAIN LEVEL 7 -10 Last administered on 09/13/16 09:28; Admin Dose 2 TAB; Start 09/12/16 at 10 :00 Hydromorphone HCl (Dilaudid) 0.5 mg Q2 PRN IV PAIN Last administered on 11:18; Admin Dose 0.5 MG; Start 09/12/16 at 10:00 Hydromorphone HCl (Dilaudid) 1 mg Q2 PRN IV PAIN Last administered on 09/13/16 06:27; Admin Dose 1 MG; Start 09/12/16 at 10:00 Docusate Sodium (Colace) 100 mg BID PRN PO CONSTIPATION Last administered on at 14:24; Admin Dose 100 MG; Start 09/12/16 at 10:00 Bisacodyl (Dulcolax Supp) 10 mg BID PRN MD CONSTIPATION; Start 09/12/16 at 10: 00 Sodium Biphosphate/ Sodium Phosphate (Fleet Enema) 133 ml BID PRN MD CONSTIPATION; Start 09/12/16 at 10:00 Famotidine (Pepcid Iv) 20 mg DAILY IV Last administered on 09/13/16 09:05; Admin Dose 20 MG; Start 09/13/16 at 09:00 Enoxaparin Sodium 40 mg 40 mg DAILY SC Last administered on 09/13/16 09:07; Admin Dose 40 MG; Start 09/13/16 at 09:00 Ceftriaxone Sodium 50 ml @ 100 mls/hr Q24H IVPB Last administered on at 23:27; Admin Dose 100 MLS/HR; Start 09/12/16 at 23:00 Metronidazole (Flagyl 500 Mg (Pmx)) 100 ml @ 100 mls/hr Q6 IVPB Last administered on 09/13/16 12:10; Admin Dose 100 MLS/HR; Start 09/12/16 at 12:00 Lorazepam (Ativan) 0.5 mg Q4H PRN IV ANXIETY Last administered on 09/12/16at 15 :45; Admin Dose 0.5 MG; Start 09/12/16 at 16:00 Hydralazine HCl (Apresoline) 25 mg Q6H PRN PO ELEVATED BLOOD PRESSURE Last administered on 09/12/16at 15:44; Admin Dose 25 MG; Start 09/12/16 at 16:00 ERNESTO SHEPPARD Sep 13, 2016 12:46
[2016-09-13 19:34] VITALS: BP 188/85; RESP 18
[2016-09-13] MEDS: CEFTRIAXONE 1 GM/50 ML (PMX) 50 ML IVPB SCH (23:04)
[2016-09-14] VITALS (10 sets, daily range): BP systolic 133–197; BP diastolic 61–92; PULSE 64–78; RESP 18–20
[2016-09-14] MEDS: metroNIDAZOLE 500 MG/NS (PMX) 100 ML IVPB SCH ×5 (00:41→23:44)
[2016-09-14] MEDS: D5W-0.45 NACL + KCL 20 MEQ 1,000 ML IV SCH ×3 (01:40→21:40)
[2016-09-14] MEDS: HYDROmorphONE 1 MG/ML SYG IV PRN ×4 (02:58→20:06)
[2016-09-14] MEDS: HYDROCODONE/APAP (5/325) TAB PO PRN ×4 (06:09→22:45)
[2016-09-14] MEDS: ENOXAPARIN 40 MG/0.4 ML SYG SC SCH (09:09)
[2016-09-14] MEDS: DOCUSATE SODIUM 100 MG CAP PO PRN (09:12)
[2016-09-14] MEDS: FAMOTIDINE 20 MG INJ IV SCH (09:13)
--- NOTE | 2016-09-14 11:44 | PN ---
Date/Time of Note Date/Time of Note DATE: 09/14/16 TIME: 11:43 Assessment/Plan Lines/Catheters IV Catheter Type (from Nrsg): Saline Lock Assessment/Plan Assessment/Plan [facility] Progress Note Date of Service: 09/14/16 Today's Impression & Plan: Overall doing well post op without major issues. No major wound problems. Abd pain much better. With above assessment, I've recommended the following for today: 1. Ok to d/c from my standpoint 2. Please include the following in the patient's discharge instructions: "Please call [phone] if any of fever, nausea, vomiting, discharge from wound, wound redness, increase or sudden pain, blood in stool or vomit, or any other unusual signs or symptoms. Also, please call the same number in a few days to schedule an appointment for your follow up visit. Patient may remove dressings tomorrow. Showers OK starting tomorrow. No swimming , hot tub or bath for 2 weeks. No lifting more than 25 lbs for 8 weeks." Thank you again for your great care of this very pleasant patient and wonderful family. If there are any questions, please feel free to call me at [phone]. TOTAL VISIT TIME: 20 minutes of which more than half was spent in [id number] discussion with the patient, possibly including family, as well as coordination of care between multiple physicians and providers. Disclaimer: Inadvertent spelling or grammatical errors are likely due to EHR/ dictation software use and do not reflect on the overall quality of patient care. Updated Clinical Summary: The patient is a very pleasant 61-year-old lady with multiple comorbid issues ( see below) admitted through the emergency department with diagnosis of acute appendicitis based on symptoms as well as CT scan. Patient reports having this pain for last 2 weeks and for this reason there is a small chance that this may not be appendicitis, but given the overall clinical picture, I believe that an appendectomy is indicated. I explained to the patient that there is a 5% chance that her appendix might be normal but that clinically, we have enough reason to offer her an operation. S/p an otherwise uncomplicated laparoscopic appendectomy and repair of an incidentally discovered umbilical hernia on 09/12 with findings of non-perforated acute on chronic retrocecal appendicitis. Comorbidities/PMHx List: 1. Acute on chronic appendicitis, s/p an otherwise uncomplicated laparoscopic appendectomy and repair of an incidentally discovered umbilical hernia on 09/12 with findings of non-perforated acute on chronic retrocecal appendicitis. 2. Arthritis 3. Bilateral lower extremity hammertoes 4. Torn meniscus in the left knee 5. Chronic back pain 6. Hypertension 7. Hypercholesterolemia 8. Recurrent dizziness None. Hypertriglyceridemia 10. Abnormal Pap smear at age 30 with a negative colposcopy 11. History of hemorrhoids 12. Diet-controlled diabetes in the past 13. BMI 27.8 14. Gout 15. Right carpal tunnel release 16. Toe surgeries on the right 17. Colonoscopy 02/28/2009 Subjective: No major events or complaints; no mahor abd pain and under control with medications; no n/v/d; no sob or cp; + flatus; + BM and normal; + activity Objective: Vitals: See below Exam: GENERAL: On exam, the patient was sitting in a chair and appeared to be comfortable and in no acute distress. ABDOMEN: Soft, less tender to palpation around the incisions and in the right lower quadrant and nondistended. Incisions are clean, dry and intact without any evidence of erythema, edema, discharge, or hernia. There are no peritoneal signs or guarding. SKIN: Skin appears to be pink and feels warm to touch. NEUROLOGIC: Patient is awake, alert, and follows commands appropriately. Exam/Review of Systems Vital Signs Vitals Vital Signs Date Time Temp Pulse Resp B/P Pulse Ox O2 Delivery O2 Flow Rate FiO2 09/14/16 11:36 69 133/61 09/14/16 08:55 98.1 18 95 09/14/16 00:48 Room Air 09/12/16 19:40 2.0 Intake and Output 09/13/16 09/13/16 09/14/16 15:00 23:00 07:00 Intake Total 100 ml 1600 ml 2350 ml Output Total 1400 ml 1600 ml Balance 100 ml 200 ml 750 ml Results Result Diagram: 09/13/16 0425 09/13/16 0425 NUBIA VILLAR M.D. Sep 14, 2016 11:44
--- NOTE | 2016-09-14 13:36 | PN ---
Date/Time of Note Date/Time of Note DATE: 09/14/16 TIME: 13:34 Assessment/Plan VTE Prophylaxis VTE Prophylaxis Intervention: other Lines/Catheters IV Catheter Type (from Nrsg): Saline Lock Assessment/Plan Chief Complaint/Hosp Course 1) appendicitis - s/p appendectomy - post operative care 2) hypertension - monitor Problems: Subjective 24 Hr Interval Summary Free Text/Dictation Patient complain of pain in left leg related to gout Exam/Review of Systems Vital Signs Vitals Vital Signs Date Time Temp Pulse Resp B/P Pulse Ox O2 Delivery O2 Flow Rate FiO2 09/14/16 11:36 69 133/61 09/14/16 08:55 98.1 18 95 09/14/16 00:48 Room Air 09/12/16 19:40 2.0 Intake and Output 09/13/16 09/13/16 09/14/16 15:00 23:00 07:00 Intake Total 100 ml 1600 ml 2350 ml Output Total 1400 ml 1600 ml Balance 100 ml 200 ml 750 ml Exam Constitutional: well developed Neck: supple Respiratory: clear to auscultation Cardiovascular: regular rate and rhythm Gastrointestinal: non-tender, soft Results Result Diagram: 09/13/165 09/13/16 0425 Medications Medications Current Medications Ondansetron HCl (Zofran Inj) 4 mg Q6H PRN IV NAUSEA AND/OR VOMITING Last administered on 09/13/16 11:27; Admin Dose 4 MG; Start 09/12/16 at 01:00 Clonidine (Catapres) 0.1 mg Q6H PRN PO SBP greater than 160 Last administered on 09/14/16 09:12; Admin Dose 0.1 MG; Start 09/12/16 at 01:00 Zolpidem Tartrate (Ambien) 5 mg HS PRN PO INSOMNIA; Start 09/12/16 at 01:00 Morphine Sulfate 2 mg 2 mg Q2H PRN IV PAIN Last administered on 09/12/16at 04: 41; Admin Dose 2 MG; Start 09/12/16 at 04:30 Potassium Chloride/Dextrose/ Sod Cl (D5-1/2ns + KCl 20 Meq) 1,000 ml @ 100 mls/ hr Q10H IV Last administered on 09/13/16 16:22; Admin Dose 100 MLS/HR; Start 09/12/16 at 09:40 Acetaminophen/ Hydrocodone Bitart ([place] (5/325)) 1 tab Q4H PRN PO PAIN LEVEL 4 -7; Start 09/12/16 at 10:00 Acetaminophen/ Hydrocodone Bitart ([place] (5/325)) 2 tab Q4H PRN PO PAIN LEVEL 7 -10 Last administered on 09/14/16 10:33; Admin Dose 2 TAB; Start 09/12/16 at 10 :00 Hydromorphone HCl (Dilaudid) 0.5 mg Q2 PRN IV PAIN Last administered on 21:16; Admin Dose 0.5 MG; Start 09/12/16 at 10:00 Hydromorphone HCl (Dilaudid) 1 mg Q2 PRN IV PAIN Last administered on 09/14/16 09:13; Admin Dose 1 MG; Start 09/12/16 at 10:00 Docusate Sodium (Colace) 100 mg BID PRN PO CONSTIPATION Last administered on 09:12; Admin Dose 100 MG; Start 09/12/16 at 10:00 Bisacodyl (Dulcolax Supp) 10 mg BID PRN [place] CONSTIPATION; Start 09/12/16 at 10: 00 Sodium Biphosphate/ Sodium Phosphate (Fleet Enema) 133 ml BID PRN DC CONSTIPATION; Start 09/12/16 at 10:00 Famotidine (Pepcid Iv) 20 mg DAILY IV Last administered on 09/14/16 09:13; Admin Dose 20 MG; Start 09/13/16 at 09:00 Enoxaparin Sodium 40 mg 40 mg DAILY SC Last administered on 09/14/16 09:09; Admin Dose 40 MG; Start 09/13/16 at 09:00 Ceftriaxone Sodium 50 ml @ 100 mls/hr Q24H IVPB Last administered on 09/13/16 23:04; Admin Dose 100 MLS/HR; Start 09/12/16 at 23:00 Metronidazole (Flagyl 500 Mg (Pmx)) 100 ml @ 100 mls/hr Q6 IVPB Last administered on 09/14/16 11:35; Admin Dose 100 MLS/HR; Start 09/12/16 at 12:00 Lorazepam (Ativan) 0.5 mg Q4H PRN IV ANXIETY Last administered on 09/12/16at 15 :45; Admin Dose 0.5 MG; Start 09/12/16 at 16:00 Hydralazine HCl (Apresoline) 25 mg Q6H PRN PO ELEVATED BLOOD PRESSURE Last administered on 09/14/16 10:33; Admin Dose 25 MG; Start 09/12/16 at 16:00 ERNESTO SHEPPARD Sep 14, 2016 13:35
[2016-09-14] MEDS: CEFTRIAXONE 1 GM/50 ML (PMX) 50 ML IVPB SCH (22:44)
[2016-09-15] VITALS (8 sets, daily range): BP systolic 127–179; BP diastolic 60–81; PULSE 76–86; RESP 17–20
[2016-09-15] MEDS: HYDROmorphONE 1 MG/ML SYG IV PRN ×4 (01:13→20:24)
[2016-09-15] MEDS: HYDROCODONE/APAP (5/325) TAB PO PRN ×5 (03:03→23:11)
[2016-09-15] MEDS: metroNIDAZOLE 500 MG/NS (PMX) 100 ML IVPB SCH ×3 (06:12→17:37)
[2016-09-15] MEDS: D5W-0.45 NACL + KCL 20 MEQ 1,000 ML IV SCH ×2 (07:40→16:51)
[2016-09-15] MEDS: FAMOTIDINE 20 MG INJ IV SCH (10:06)
[2016-09-15] MEDS: ENOXAPARIN 40 MG/0.4 ML SYG SC SCH (10:26)
--- NOTE | 2016-09-15 11:11 | PN ---
Date/Time of Note Date/Time of Note DATE: 09/15/16 TIME: 11:09 Assessment/Plan Lines/Catheters IV Catheter Type (from [facility]): Saline Lock Assessment/Plan Assessment/Plan [facility] Progress Note Date of Service: 09/15/16 Today's Impression & Plan: Overall doing well post op without major issues. No major wound problems. Abd benign. Kept inhouse for gout flare. With above assessment, I've recommended the following for today: 1. Ok to d/c from my standpoint 2. Will follow from periphery 3. Please include the following in the patient's discharge instructions: "Please call [phone] if any of fever, nausea, vomiting, discharge from wound, wound redness, increase or sudden pain, blood in stool or vomit, or any other unusual signs or symptoms. Also, please call the same number in a few days to schedule an appointment for your follow up visit. Patient may remove dressings tomorrow. Showers OK starting tomorrow. No swimming , hot tub or bath for 2 weeks. No lifting more than 25 lbs for 8 weeks." Thank you again for your great care of this very pleasant patient and wonderful family. If there are any questions, please feel free to call me at [phone]. TOTAL VISIT TIME: 20 minutes of which more than half was spent in [id number] discussion with the patient, possibly including family, as well as coordination of care between multiple physicians and providers. Disclaimer: Inadvertent spelling or grammatical errors are likely due to EHR/ dictation software use and do not reflect on the overall quality of patient care. Updated Clinical Summary: The patient is a very pleasant 61-year-old lady with multiple comorbid issues ( see below) admitted through the emergency department with diagnosis of acute appendicitis based on symptoms as well as CT scan. Patient reports having this pain for last 2 weeks and for this reason there is a small chance that this may not be appendicitis, but given the overall clinical picture, I believe that an appendectomy is indicated. I explained to the patient that there is a 5% chance that her appendix might be normal but that clinically, we have enough reason to offer her an operation. S/p an otherwise uncomplicated laparoscopic appendectomy and repair of an incidentally discovered umbilical hernia on 09/12 with findings of non-perforated acute on chronic retrocecal appendicitis. Comorbidities/PMHx List: 1. Acute on chronic appendicitis, s/p an otherwise uncomplicated laparoscopic appendectomy and repair of an incidentally discovered umbilical hernia on 09/12 with findings of non-perforated acute on chronic retrocecal appendicitis. 2. Arthritis 3. Bilateral lower extremity hammertoes 4. Torn meniscus in the left knee 5. Chronic back pain 6. Hypertension 7. Hypercholesterolemia 8. Recurrent dizziness None. Hypertriglyceridemia 10. Abnormal Pap smear at age 30 with a negative colposcopy 11. History of hemorrhoids 12. Diet-controlled diabetes in the past 13. BMI 27.8 14. Gout 15. Right carpal tunnel release 16. Toe surgeries on the right 17. Colonoscopy 02/28/2009 Subjective: No major events or complaints; no major abd pain and under control with medications; pain complaint today is from her toes; no n/v/d; no sob or cp; + flatus; + BM and normal; + activity Objective: Vitals: See below Exam: GENERAL: On exam, the patient was sitting in a chair and appeared to be comfortable and in no acute distress. ABDOMEN: Soft, less tender to palpation around the incisions and in the right lower quadrant and nondistended. Incisions are clean, dry and intact without any evidence of erythema, edema, discharge, or hernia. There are no peritoneal signs or guarding. SKIN: Skin appears to be pink and feels warm to touch. NEUROLOGIC: Patient is awake, alert, and follows commands appropriately. Exam/Review of Systems Vital Signs Vitals Vital Signs Date Time Temp Pulse Resp B/P Pulse Ox O2 Delivery O2 Flow Rate FiO2 09/15/16 08:26 98.4 80 19 164/77 95 09/15/16 06:18 Room Air 09/12/16 19:40 2.0 Intake and Output 09/14/16 09/14/16 09/15/16 15:00 23:00 07:00 Intake Total 100 ml 960 ml 650 ml Output Total 1100 ml Balance 100 ml -140 ml 650 ml Results Result Diagram: 09/13/16 0425 09/13/16 0425 NUBIA VILLAR M.D. Sep 15, 2016 11:10
[2016-09-15] MEDS ORDERED: HYDR-3498 PO (12:43)
--- NOTE | 2016-09-15 12:46 | DS ---
Date/Time of Note Date/Time of Note DATE: 09/15/16 TIME: 12:44 Discharge Summary Admission/Discharge Info Admit Date/Time Sep 11, 2016 at 23:06 Discharge Date/Time 09/15/16 Final Diagnosis 1) appendicitis 2) hypertension 3) pain in left leg Patient Condition: Fair Consults surgery Hx of Present Illness Patient admitted for abdominal pain and was diagnosed with appendicitis per abdominal CT. Patient is away from room so unable to obtain further history Hospital Course Patient comes in with abdominal pain and found to have appendicitis. Patient underwent appendectomy and had a slow course with pain in right leg that she states is associated with gout which she has had in the past. 1) appendicitis - s/p appendectomy - post operative care 2) hypertension - monitor 3) gout - pain medication Home Meds Reported Medications Carvedilol* (Carvedilol*) 25 Mg Tablet, 25 MG PO BID, #60 TAB 09/11/16 Zolpidem Tartrate* (Ambien*) 10 Mg Tablet, 10 MG PO QHS Y for INSOMNIA, TAB 09/11/16 Clonidine Hcl* (Clonidine Hcl*) 0.2 Mg Tablet, 0.2 MG PO TID, TAB 09/11/16 Spironolactone* (Aldactone*) 25 Mg Tablet, 25 MG PO DAILY 04/11/13 Discontinued Reported Medications Gemfibrozil* (Lopid*) 600 Mg Tablet, PO BID 12/27/13 [Colchicine] No Conflict Check, PO DAILY 12/27/13 Indomethacin* (Indocin*) 50 Mg Cap, 50 MG PO BID 04/11/13 Clonidine Hcl* (Clonidine Hcl*) 0.3 Mg Tablet, 0.2 MG PO BID 04/11/13 Carvedilol* (Carvedilol*) 25 Mg Tablet, 50 MG PO BID 04/11/13 Discontinued Scripts Nitrofurantoin Monohyd Macrocr* (Macrobid*) 100 Mg Capsr, 100 MG PO BID for 5 Days, CAP Prov:BERTRAM VIGIL NP 08/08/16 Meclizine Hcl* (Antivert*) 12.5 Mg Tab, 12.5 MG PO Q6H Y for DIZZINESS, #20 TAB Prov:BERTRAM VIGIL NP 08/08/16 Clindamycin Hcl* (Clindamycin Hcl*) 300 Mg Capsule, 300 MG PO TID for 10 Days, CAP Prov:YOSEF FOX PA-C 08/21/15 Hydrocodone Bit-Acetaminophen* ([place]*) 5-325 Mg Tab, 1 TAB PO Q6 Y for PAIN, # 6 TAB Prov:YOSEF FOX PA-C 08/21/15 ERNESTO SHEPPARD Sep 15, 2016 12:46
[2016-09-15] MEDS: ONDANSETRON 4 MG INJ IV PRN (20:22)
[2016-09-15] MEDS: CEFTRIAXONE 1 GM/50 ML (PMX) 50 ML IVPB SCH (22:41)
[2016-09-16] MEDS: COLCHICINE 0.6 MG TAB PO SCH ×2 (01:09→08:24)
[2016-09-16] MEDS: HYDROmorphONE 1 MG/ML SYG IV PRN ×6 (01:10→22:33)
[2016-09-16] MEDS: metroNIDAZOLE 500 MG/NS (PMX) 100 ML IVPB SCH ×4 (01:15→17:51)
[2016-09-16] MEDS: D5W-0.45 NACL + KCL 20 MEQ 1,000 ML IV SCH ×3 (03:40→23:40)
[2016-09-16] MEDS: HYDROCODONE/APAP (5/325) TAB PO PRN ×4 (04:03→20:12)
[2016-09-16 07:22] VITALS: BP 148/70; RESP 19
[2016-09-16] MEDS: FAMOTIDINE 20 MG INJ IV SCH (08:25)
[2016-09-16] MEDS: ENOXAPARIN 40 MG/0.4 ML SYG SC SCH (08:27)
[2016-09-16 11:36] VITALS: BP 168/70; PULSE 87; RESP 16
--- NOTE | 2016-09-16 12:10 | PN ---
Date/Time of Note Date/Time of Note DATE: 09/16/16 TIME: 12:09 Assessment/Plan VTE Prophylaxis VTE Prophylaxis Intervention: LMWH Lines/Catheters IV C[facility]ter Type (from [facility]): Saline Lock Assessment/Plan Chief Complaint/Hosp Course Patient comes in with abdominal pain and found to have appendicitis. Patient underwent appendectomy and had a slow course with pain in right leg that she states is associated with gout which she has had in the past. 1) appendicitis - s/p appendectomy - post operative care 2) hypertension - monitor 3) gout - pain medication, added colchicine Problems: Subjective 24 Hr Interval Summary Free Text/Dictation Patient states left foot feels better Exam/Review of Systems Vital Signs Vitals Vital Signs Date Time Temp Pulse Resp B/P Pulse Ox O2 Delivery O2 Flow Rate FiO2 09/16/16 11:36 99.0 87 16 168/70 99 Room Air 09/12/16 19:40 2.0 Intake and Output 09/15/16 09/15/16 09/16/16 15:00 23:00 07:00 Intake Total 200 ml 1120 ml 350 ml Balance 200 ml 1120 ml 350 ml Exam Constitutional: alert, well developed Head: atraumatic, normocephalic Neck: supple Respiratory: clear to auscultation Cardiovascular: regular rate and rhythm Gastrointestinal: non-tender, soft Results Result Diagram: 09/13/165 09/13/165 Medications Medications Current Medications Ondansetron HCl (Zofran Inj) 4 mg Q6H PRN IV NAUSEA AND/OR VOMITING Last administered on 09/15/16 20:22; Admin Dose 4 MG; Start 09/12/16 at 01:00 Clonidine (Catapres) 0.1 mg Q6H PRN PO SBP greater than 160 Last administered on 09/15/16 20:28; Admin Dose 0.1 MG; Start 09/12/16 at 01:00 Zolpidem Tartrate (Ambien) 5 mg HS PRN PO INSOMNIA; Start 09/12/16 at 01:00 Morphine Sulfate 2 mg 2 mg Q2H PRN IV PAIN Last administered on 09/12/16at 04: 41; Admin Dose 2 MG; Start 09/12/16 at 04:30 Potassium Chloride/Dextrose/ Sod Cl (D5-1/2ns + KCl 20 Meq) 1,000 ml @ 100 mls/ hr Q10H IV Last administered on 09/13/16 16:22; Admin Dose 100 MLS/HR; Start 09/12/16 at 09:40 Acetaminophen/ Hydrocodone Bitart ([place] (5/325)) 1 tab Q4H PRN PO PAIN LEVEL 4 -7; Start 09/12/16 at 10:00 Acetaminophen/ Hydrocodone Bitart ([place] (5/325)) 2 tab Q4H PRN PO PAIN LEVEL 7 -10 Last administered on 09/16/16 08:25; Admin Dose 2 TAB; Start 09/12/16 at 10 :00 Hydromorphone HCl (Dilaudid) 0.5 mg Q2 PRN IV PAIN Last administered on 21:16; Admin Dose 0.5 MG; Start 09/12/16 at 10:00 Hydromorphone HCl (Dilaudid) 1 mg Q2 PRN IV PAIN Last administered on 09/16/16 10:39; Admin Dose 1 MG; Start 09/12/16 at 10:00 Docusate Sodium (Colace) 100 mg BID PRN PO CONSTIPATION Last administered on 09:12; Admin Dose 100 MG; Start 09/12/16 at 10:00 Bisacodyl (Dulcolax Supp) 10 mg BID PRN [place] CONSTIPATION; Start 09/12/16 at 10: 00 Sodium Biphosphate/ Sodium Phosphate (Fleet Enema) 133 ml BID PRN [place] CONSTIPATION; Start 09/12/16 at 10:00 Famotidine (Pepcid Iv) 20 mg DAILY IV Last administered on 09/16/16 08:25; Admin Dose 20 MG; Start 09/13/16 at 09:00 Enoxaparin Sodium 40 mg 40 mg DAILY SC Last administered on 09/16/16 08:27; Admin Dose 40 MG; Start 09/13/16 at 09:00 Ceftriaxone Sodium 50 ml @ 100 mls/hr Q24H IVPB Last administered on 09/15/16 22:41; Admin Dose 100 MLS/HR; Start 09/12/16 at 23:00 Metronidazole (Flagyl 500 Mg (Pmx)) 100 ml @ 100 mls/hr Q6 IVPB Last administered on 09/16/16 11:33; Admin Dose 100 MLS/HR; Start 09/12/16 at 12:00 Lorazepam (Ativan) 0.5 mg Q4H PRN IV ANXIETY Last administered on 09/12/16at 15 :45; Admin Dose 0.5 MG; Start 09/12/16 at 16:00 Hydralazine HCl (Apresoline) 25 mg Q6 PO Last administered on 09/16/16 11:36; Admin Dose 25 MG; Start 09/14/16 at 16:00 Colchicine (Colchicine) 0.6 mg DAILY PO Last administered on 09/16/16 08:24; Admin Dose 0.6 MG; Start 09/15/16 at 23:00 ERNESTO SHEPPARD Sep 16, 2016 12:10
[2016-09-16 17:52] VITALS: BP 150/66; PULSE 82
[2016-09-16 20:57] VITALS: BP 168/72; RESP 19
[2016-09-16] MEDS: CEFTRIAXONE 1 GM/50 ML (PMX) 50 ML IVPB SCH (22:34)
[2016-09-17] MEDS: HYDROCODONE/APAP (5/325) TAB PO PRN ×6 (00:26→23:39)
[2016-09-17] MEDS: metroNIDAZOLE 500 MG/NS (PMX) 100 ML IVPB SCH ×2 (00:27→06:31)
[2016-09-17] MEDS: HYDROmorphONE 1 MG/ML SYG IV PRN ×5 (03:03→21:31)
[2016-09-17 08:38] VITALS: BP 136/65; RESP 18
[2016-09-17] MEDS: COLCHICINE 0.6 MG TAB PO SCH (09:40)
[2016-09-17] MEDS: D5W-0.45 NACL + KCL 20 MEQ 1,000 ML IV SCH (09:40)
[2016-09-17] MEDS: FAMOTIDINE 20 MG INJ IV SCH (09:40)
[2016-09-17] MEDS: ENOXAPARIN 40 MG/0.4 ML SYG SC SCH (09:53)
[2016-09-17] MEDS ORDERED: COLC0.6T6 PO (12:43)
--- NOTE | 2016-09-17 12:44 | PN ---
Date/Time of Note Date/Time of Note DATE: 09/17/16 TIME: 12:43 Assessment/Plan VTE Prophylaxis VTE Prophylaxis Intervention: LMWH Lines/Catheters IV Catheter Type (from Nrs): Peripheral IV Assessment/Plan Chief Complaint/Hosp Course Patient comes in with abdominal pain and found to have appendicitis. Patient underwent appendectomy and had a slow course with pain in right leg that she states is associated with gout which she has had in the past. 1) appendicitis - s/p appendectomy - post operative care 2) hypertension - monitor 3) gout - pain medication, added colchicine Problems: Subjective 24 Hr Interval Summary Free Text/Dictation Patient still has pain in left foot Exam/Review of Systems Vital Signs Vitals Vital Signs Date Time Temp Pulse Resp B/P Pulse Ox O2 Delivery O2 Flow Rate FiO2 09/17/16 08:38 98.2 66 18 136/65 98 09/16/16 11:36 Room Air Intake and Output 09/16/16 09/16/16 09/17/16 15:00 23:00 07:00 Intake Total 200 ml 710 ml 650 ml Balance 200 ml 710 ml 650 ml Exam Constitutional: well developed Head: atraumatic, normocephalic Neck: supple Respiratory: clear to auscultation Cardiovascular: regular rate and rhythm Gastrointestinal: soft Extremities: normal pulses Results Result Diagram: 09/13/165 09/13/16 0425 Medications Medications Current Medications Ondansetron HCl (Zofran Inj) 4 mg Q6H PRN IV NAUSEA AND/OR VOMITING Last administered on 09/15/16 20:22; Admin Dose 4 MG; Start 09/12/16 at 01:00 Clonidine (Catapres) 0.1 mg Q6H PRN PO SBP greater than 160 Last administered on 09/16/16 22:47; Admin Dose 0.1 MG; Start 09/12/16 at 01:00 Zolpidem Tartrate (Ambien) 5 mg HS PRN PO INSOMNIA; Start 09/12/16 at 01:00 Morphine Sulfate 2 mg 2 mg Q2H PRN IV PAIN Last administered on 09/12/16at 04: 41; Admin Dose 2 MG; Start 09/12/16 at 04:30 Potassium Chloride/Dextrose/ Sod Cl (D5-1/2ns + KCl 20 Meq) 1,000 ml @ 100 mls/ hr Q10H IV Last administered on 09/13/16 16:22; Admin Dose 100 MLS/HR; Start 09/12/16 at 09:40 Acetaminophen/ Hydrocodone Bitart ([place] (5/325)) 1 tab Q4H PRN PO PAIN LEVEL 4 -7; Start 09/12/16 at 10:00 Acetaminophen/ Hydrocodone Bitart ([place] (5/325)) 2 tab Q4H PRN PO PAIN LEVEL 7 -10 Last administered on 09/17/16 09:40; Admin Dose 2 TAB; Start 09/12/16 at 10 :00 Hydromorphone HCl (Dilaudid) 0.5 mg Q2 PRN IV PAIN Last administered on 21:16; Admin Dose 0.5 MG; Start 09/12/16 at 10:00 Hydromorphone HCl (Dilaudid) 1 mg Q2 PRN IV PAIN Last administered on 09/17/16 12:17; Admin Dose 1 MG; Start 09/12/16 at 10:00 Docusate Sodium (Colace) 100 mg BID PRN PO CONSTIPATION Last administered on 09:12; Admin Dose 100 MG; Start 09/12/16 at 10:00 Bisacodyl (Dulcolax Supp) 10 mg BID PRN [place] CONSTIPATION; Start 09/12/16 at 10: 00 Sodium Biphosphate/ Sodium Phosphate (Fleet Enema) 133 ml BID PRN [place] CONSTIPATION; Start 09/12/16 at 10:00 Famotidine (Pepcid Iv) 20 mg DAILY IV Last administered on 09/17/16 09:40; Admin Dose 20 MG; Start 09/13/16 at 09:00 Enoxaparin Sodium (Lovenox) 40 mg DAILY SC Last administered on 09/17/16 09:53 ; Admin Dose 40 MG; Start 09/13/16 at 09:00 Lorazepam (Ativan) 0.5 mg Q4H PRN IV ANXIETY Last administered on 09/12/16at 15 :45; Admin Dose 0.5 MG; Start 09/12/16 at 16:00 Hydralazine HCl (Apresoline) 25 mg Q6 PO Last administered on 09/17/16 12:21; Admin Dose 25 MG; Start 09/14/16 at 16:00 Colchicine (Colchicine) 0.6 mg DAILY PO Last administered on 09/17/16t 09:40; Admin Dose 0.6 MG; Start 09/15/16 at 23:00 ERNESTO SHEPPARD Sep 17, 2016 12:44
[2016-09-17 17:42] VITALS: BP 177/79; PULSE 81; RESP 20
[2016-09-17 21:18] VITALS: BP 189/91; RESP 18
[2016-09-18] MEDS: ZOLPIDEM 5 MG TAB PO PRN (01:51)
[2016-09-18] MEDS: HYDROmorphONE 1 MG/ML SYG IV PRN ×4 (01:52→21:46)
[2016-09-18] MEDS: HYDROCODONE/APAP (5/325) TAB PO PRN ×3 (05:01→18:12)
[2016-09-18 07:26] VITALS: BP 164/70; RESP 20
[2016-09-18] MEDS: COLCHICINE 0.6 MG TAB PO SCH (09:11)
[2016-09-18] MEDS: FAMOTIDINE 20 MG TAB PO SCH (09:12)
[2016-09-18] MEDS: ENOXAPARIN 40 MG/0.4 ML SYG SC SCH (09:14)
--- NOTE | 2016-09-18 15:18 | DS ---
Date/Time of Note Date/Time of Note DATE: 09/18/16 TIME: 15:15 Discharge Summary Admission/Discharge Info Admit Date/Time Sep 11, 2016 at 23:06 Discharge Date/Time 09/18/16 Final Diagnosis 1) appendicitis 2) gout Patient Condition: Fair Hx of Present Illness Patient admitted for abdominal pain and was diagnosed with appendicitis per abdominal CT. Patient is away from room so unable to obtain further history Hospital Course Patient comes in with abdominal pain and found to have appendicitis. Patient underwent appendectomy and had a slow course with pain in right leg that she states is associated with gout which she has had in the past. Patient disputed the discharge but there is finally to be resolution. 1) appendicitis - s/p appendectomy - post operative care 2) hypertension - monitor 3) gout - pain medication, added colchicine Home Meds Active Scripts Colchicine* (Colcrys*) 0.6 Mg Tablet, 0.6 MG PO BID for 7 Days, TAB Prov:ERNESTO SHEPPARD Y 09/17/16 Hydrocodone Bit-Acetaminophen (Hydrocodone Bit-APAP) 5-325MG Tablet, 1 TAB PO Q4H Y for PAIN LEVEL 4-7 for 10 Days, #30 TAB Prov:ERNESTO SHEPPARD Y 09/15/16 Reported Medications Carvedilol* (Carvedilol*) 25 Mg Tablet, 25 MG PO BID, #60 TAB 09/11/16 Zolpidem Tartrate* (Ambien*) 10 Mg Tablet, 10 MG PO QHS Y for INSOMNIA, TAB 09/11/16 Clonidine Hcl* (Clonidine Hcl*) 0.2 Mg Tablet, 0.2 MG PO TID, TAB 09/11/16 Spironolactone* (Aldactone*) 25 Mg Tablet, 25 MG PO DAILY 04/11/13 Discontinued Reported Medications Gemfibrozil* (Lopid*) 600 Mg Tablet, PO BID 12/27/13 [Colchicine] No Conflict Check, PO DAILY 12/27/13 Indomethacin* (Indocin*) 50 Mg Cap, 50 MG PO BID 04/11/13 Clonidine Hcl* (Clonidine Hcl*) 0.3 Mg Tablet, 0.2 MG PO BID 04/11/13 Carvedilol* (Carvedilol*) 25 Mg Tablet, 50 MG PO BID 04/11/13 Discontinued Scripts Nitrofurantoin Monohyd Macrocr* (Macrobid*) 100 Mg Capsr, 100 MG PO BID for 5 Days, CAP Prov:BERTRAM VIGIL NP 08/08/16 Meclizine Hcl* (Antivert*) 12.5 Mg Tab, 12.5 MG PO Q6H Y for DIZZINESS, #20 TAB Prov:YARITZABERTRAM Esquivel NP 08/08/16 Clindamycin Hcl* (Clindamycin Hcl*) 300 Mg Capsule, 300 MG PO TID for 10 Days, CAP Prov:YOSEF FOX PA-C 08/21/15 Hydrocodone Bit-Acetaminophen* ([place]*) 5-325 Mg Tab, 1 TAB PO Q6 Y for PAIN, # 6 TAB Prov:YOSEF FOX PA-C 08/21/15 ERNESTO SHEPPARD Sep 18, 2016 15:18
[2016-09-18 20:00] VITALS: BP 188/72; PULSE 72; RESP 18
[2016-09-18 20:27] VITALS: BP 198/93; RESP 18
[2016-09-18 23:15] VITALS: BP 183/81; PULSE 69; RESP 18
[2016-09-19] VITALS (12 sets, daily range): BP systolic 134–190; BP diastolic 62–86; PULSE 59–78; RESP 18–20
[2016-09-19] MEDS: HYDROCODONE/APAP (5/325) TAB PO PRN ×4 (00:29→23:07)
[2016-09-19] MEDS: HYDROmorphONE 1 MG/ML SYG IV PRN ×4 (05:41→20:56)
[2016-09-19] MEDS: LORAZEPAM 2 MG INJ IV PRN (06:58)
[2016-09-19] MEDS: COLCHICINE 0.6 MG TAB PO SCH (08:49)
[2016-09-19] MEDS: FAMOTIDINE 20 MG TAB PO SCH (08:49)
[2016-09-19] MEDS: ENOXAPARIN 40 MG/0.4 ML SYG SC SCH (08:56)
--- NOTE | 2016-09-19 12:09 | DS ---
Date/Time of Note Date/Time of Note DATE: 09/19/16 TIME: 12:08 Discharge Summary Admission/Discharge Info Admit Date/Time Sep 11, 2016 at 23:06 Discharge Date/Time 09/19/16 Final Diagnosis 1) appendicitis 2) gout Patient Condition: Fair Hx of Present Illness Patient admitted for abdominal pain and was diagnosed with appendicitis per abdominal CT. Patient is away from room so unable to obtain further history Hospital Course Patient comes in with abdominal pain and found to have appendicitis. Patient underwent appendectomy and had a slow course with pain in right leg that she states is associated with gout which she has had in the past. Patient disputed the discharge but there is finally to be resolution. 1) appendicitis - s/p appendectomy - post operative care 2) hypertension - monitor 3) gout - pain medication, added colchicine Home Meds Active Scripts Colchicine* (Colcrys*) 0.6 Mg Tablet, 0.6 MG PO BID for 7 Days, TAB Prov:ERNESTO SHEPPARD 09/17/16 Hydrocodone Bit-Acetaminophen (Hydrocodone Bit-APAP) 5-325MG Tablet, 1 TAB PO Q4H Y for PAIN LEVEL 4-7 for 10 Days, #30 TAB Prov:ERNESTO SHEPPARD 09/15/16 Reported Medications Carvedilol* (Carvedilol*) 25 Mg Tablet, 25 MG PO BID, #60 TAB 09/11/16 Zolpidem Tartrate* (Ambien*) 10 Mg Tablet, 10 MG PO QHS Y for INSOMNIA, TAB 09/11/16 Clonidine Hcl* (Clonidine Hcl*) 0.2 Mg Tablet, 0.2 MG PO TID, TAB 09/11/16 Spironolactone* (Aldactone*) 25 Mg Tablet, 25 MG PO DAILY 04/11/13 ERNESTO SHEPPARD Sep 19, 2016 12:09
[2016-09-20] VITALS (9 sets, daily range): BP systolic 155–189; BP diastolic 67–79; PULSE 57–70; RESP 17–20
[2016-09-20] MEDS: ZOLPIDEM 5 MG TAB PO PRN (01:06)
[2016-09-20] MEDS: HYDROmorphONE 1 MG/ML SYG IV PRN ×2 (02:53→06:31)
[2016-09-20] MEDS: COLCHICINE 0.6 MG TAB PO SCH (08:20)
[2016-09-20] MEDS: FAMOTIDINE 20 MG TAB PO SCH (08:20)
[2016-09-20] MEDS: ENOXAPARIN 40 MG/0.4 ML SYG SC SCH (08:22)
[2016-09-20] MEDS: HYDROCODONE/APAP (5/325) TAB PO PRN ×3 (11:47→20:59)
--- NOTE | 2016-09-20 11:56 | PN ---
Date/Time of Note Date/Time of Note DATE: 09/20/16 TIME: 11:55 Assessment/Plan VTE Prophylaxis VTE Prophylaxis Intervention: other Lines/Catheters [facility] Saline Lock Assessment/Plan Chief Complaint/Hosp Course Patient comes in with abdominal pain and found to have appendicitis. Patient underwent appendectomy and had a slow course with pain in right leg that she states is associated with gout which she has had in the past. Patient disputed the discharge but there is finally to be resolution. 1) appendicitis - s/p appendectomy - post operative care 2) hypertension - restart meds that somehow had been stopped 3) gout - pain medication, added colchicine Problems: Subjective 24 Hr Interval Summary Free Text/Dictation Patient doing ok, discharge has been delayed because of hypertension Exam/Review of Systems Vital Signs Vitals Vital Signs Date Time Temp Pulse Resp B/P Pulse Ox O2 Delivery O2 Flow Rate FiO2 09/20/16 11:41 66 175/79 09/20/16 07:19 97.9 18 98 09/19/16 16:00 Room Air Intake and Output 09/19/16 09/19/16 09/20/16 15:00 23:00 07:00 Intake Total 1180 ml 800 ml Balance 1180 ml 800 ml Exam Constitutional: well developed Head: atraumatic, normocephalic Neck: supple Respiratory: clear to auscultation Cardiovascular: regular rate and rhythm Gastrointestinal: non-tender, soft Medications Medications Current Medications Ondansetron HCl (Zofran Inj) 4 mg Q6H PRN IV NAUSEA AND/OR VOMITING Last administered on 09/15/16 20:22; Admin Dose 4 MG; Start 09/12/16 at 01:00 Clonidine (Catapres) 0.1 mg Q6H PRN PO SBP greater than 160 Last administered on 09/20/16 08:25; Admin Dose 0.1 MG; Start 09/12/16 at 01:00 Zolpidem Tartrate (Ambien) 5 mg HS PRN PO INSOMNIA Last administered on 01:06; Admin Dose 5 MG; Start 09/12/16 at 01:00 Acetaminophen/ Hydrocodone Bitart ([place] (5/325)) 1 tab Q4H PRN PO PAIN LEVEL 4 -7; Start 09/12/16 at 10:00 Acetaminophen/ Hydrocodone Bitart ([place] (5/325)) 2 tab Q4H PRN PO PAIN LEVEL 7 -10 Last administered on 09/20/16 11:47; Admin Dose 2 TAB; Start 09/12/16 at 10 :00 Docusate Sodium (Colace) 100 mg BID PRN PO CONSTIPATION Last administered on 09:12; Admin Dose 100 MG; Start 09/12/16 at 10:00 Bisacodyl (Dulcolax Supp) 10 mg BID PRN [place] CONSTIPATION; Start 09/12/16 at 10: 00 Sodium Biphosphate/ Sodium Phosphate (Fleet Enema) 133 ml BID PRN [place] CONSTIPATION; Start 09/12/16 at 10:00 Enoxaparin Sodium (Lovenox) 40 mg DAILY SC Last administered on 09/20/16 08:22 ; Admin Dose 40 MG; Start 09/13/16 at 09:00 Lorazepam (Ativan) 0.5 mg Q4H PRN IV ANXIETY Last administered on 09/19/16 06: 58; Admin Dose 0.5 MG; Start 09/12/16 at 16:00 Hydralazine HCl (Apresoline) 25 mg Q6 PO Last administered on 09/20/16 11:41; Admin Dose 25 MG; Start 09/14/16 at 16:00 Colchicine (Colchicine) 0.6 mg DAILY PO Last administered on 09/20/16 08:20; Admin Dose 0.6 MG; Start 09/15/16 at 23:00 Famotidine (Pepcid) 20 mg DAILY PO Last administered on 09/20/16 08:20; Admin Dose 20 MG; Start 09/18/16 at 09:00 Carvedilol (Coreg) 25 mg BID PO ; Start 09/20/16 at 21:00 Clonidine (Catapres) 0.2 mg TID PO ; Start 09/20/16 at 13:00 ERNESTO SHEPPARD Sep 20, 2016 11:56
[2016-09-21] VITALS (9 sets, daily range): BP systolic 119–182; BP diastolic 58–79; PULSE 50–67; RESP 16–50
[2016-09-21] MEDS: HYDROCODONE/APAP (5/325) TAB PO PRN ×4 (00:41→21:42)
[2016-09-21] MEDS: LORAZEPAM 2 MG INJ IV PRN (01:26)
--- NOTE | 2016-09-21 04:13 | ERA ---
DATE OF SERVICE: 09/11/2016 HISTORY OF PRESENT ILLNESS: This 61-year-old female presented for 2 weeks of progressively increasi ng abdominal pain. The pain is now most severe in her right lower quadrant. She is now having naus ea and vomiting but denies diarrhea or constipation. The pain has gotten more severe over the last day and is a sharp pain. Denies fevers and chills. REVIEW OF SYSTEMS: A 10-point review of systems is negative except as in the HPI. PAST MEDICAL HISTORY: Diabetes, hypertension, hyperlipidemia. PAST SURGICAL HISTORY: Carpal tunnel surgery and toe surgery. SOCIAL HISTORY: Drinks alcohol occasionally on social occasions. Does not use tobacco or other michaela gs. FAMILY HISTORY: Heart disease. PHYSICAL EXAMINATION: VITAL SIGNS: Temperature 98.3, pulse 69, blood pressure 128/63, respirations 18, oxygen saturation 96% on room air. GENERAL: The patient appears to be in significant pain, clutching her abdomen. HEENT: Normocephalic, atraumatic. CARDIAC: Regular rate and rhythm. No murmurs. LUNGS: Clear to auscultation bilaterally. ABDOMEN: Moderate right lower quadrant tenderness without guarding or rebound, nondistended. Bowel sounds positive in all 4 quadrants. NEUROLOGIC: Alert and oriented x3, no focal deficits. SKIN: No rashes or other lesions. EXTREMITIES: Mild bilateral pedal edema. No deformities. VASCULAR: Distal pulses intact to all 4 extremities. LABORATORY DATA: CBC significant for no elevated white count, hemoglobin of 10.2 with normocytic an emia. Coagulation studies within normal limits with an INR of 1.09. BMP within normal limits. Franchesca er function tests within normal limits. Lipase elevation at 2366. Urinalysis negative for infectio n. IMAGING: CT abdomen and pelvis interpretation: The patient has a retrocecal appendix that is infla med measuring 1.2 cm in diameter with adjacent fat stranding. The patient is constipated. No obstr uction, no free air, no fractures. EMERGENCY DEPARTMENT COURSE AND MEDICAL DECISION MAKING: The patient's pain is evidently the result of acute appendicitis. She was immediately given Zofran and morphine and hydrated with a liter of normal saline in the ER. When return for appendicitis was called by the radiologist, she was starte d on Rocephin and Flagyl, given an additional liter of IV fluid. I called Dr. Kosari, general surge on utilization management rn, who agreed to be surgically consulted on this patient. I also spoke with Dr. Coffman who w ill be admitting the patient to medical/surgical floor. The patient's pain is all controlled at thi s time. Her vital signs are stable. ADMISSION DIAGNOSES: 1. Acute appendicitis. 2. Acute abdominal pain. 3. Constipation. 4. Diabetes. DISPOSITION: Admitted in serious condition. Dictated By: HEAVENLY CORONADO/FRANNIE Conf#: [id number] DID#: [id number]
[2016-09-21] MEDS: FAMOTIDINE 20 MG TAB PO SCH (08:12)
[2016-09-21] MEDS: COLCHICINE 0.6 MG TAB PO SCH (08:12)
[2016-09-21] MEDS: ENOXAPARIN 40 MG/0.4 ML SYG SC SCH (08:25)
[2016-09-21] MEDS ORDERED: LORAZEPAM 2 MG INJ IV PRN (16:30)
[2016-09-21] MEDS ORDERED: hydrALAzine 20 MG INJ IV PRN (16:30)
--- NOTE | 2016-09-21 17:29 | PN ---
DATE: 09/21/2016 SUBJECTIVE: Follow up on 61-year-old female, was admitted with appendicitis. The patient is status post laparoscopic appendectomy, and the patient has also a gout flareup. The patient had elevated blood pressure last night with blood pressure being 177/75. The patient has been restarted on her h ome antihypertensive medication, was given hydralazine p.r.n. Will continue to monitor the patient, and patient denies any nausea, vomiting. Pain is well controlled, tolerates current diet well. OBJECTIVE: VITAL SIGNS: Temperature is 98.0, pulse is 60, blood pressure is 145/65, respiratory rate 18, oxyge n saturation 91% on room air. GENERAL: Well-developed, well-nourished female in no acute distress. HEENT: Head is atraumatic, normocephalic. Pupils equal, round, reactive to light and accommodation . Oral mucosa is pink, moist. NECK: Supple. No mass, no thyromegaly. CHEST: Lungs clear bilaterally. There are no rhonchi, wheezes, rales noted. CARDIOVASCULAR: Normal S1, S2. ABDOMEN: Status post surgery. Bowel sounds present. EXTREMITIES: No edema. Pulses equal bilaterally, 2+. SKIN: No rash, petechiae noted. NEUROLOGIC: The patient is awake, alert and oriented x3. ASSESSMENT AND PLAN: 1. Acute appendicitis, status post appendectomy by Dr. Meza on 09/12/2016. 2. Gout. Continue colchicine and pain medication. 3. Hypertension with hypertensive episode last night. Continue patient on Coreg, hydralazine, clon idine and spironolactone. Will monitor patient's blood pressure next 24 hours. If blood pressure r emains stable, can discharge the patient to snf facility tomorrow in a.m. 4. Will continue Lovenox for deep venous thrombosis prophylaxis and Pepcid for peptic ulcer disease prophylaxis. Further recommendations based on clinical course. Plan of care discussed with Dr. Mukherjee. Dictated By: MARVEL LUNDBERG TELEPHONE ANSWERING SERVICE OPERATOR for TRU MUKHERJEE MD SR/NTS Conf#: [id number] DID#: [id number]
[2016-09-22 01:12] VITALS: BP 123/59; PULSE 59; RESP 16
[2016-09-22] MEDS: HYDROCODONE/APAP (5/325) TAB PO PRN (02:29)
[2016-09-22 02:31] VITALS: BP 116/56; PULSE 57; RESP 16
[2016-09-22 06:16] VITALS: BP 142/66; PULSE 61; RESP 16
[2016-09-22 07:30] VITALS: BP 144/66; RESP 18
[2016-09-22 07:43] VITALS: BP 133/82; RESP 18
[2016-09-22] MEDS ORDERED: SPIRONOLACTONE 25 MG TAB PO SCH (09:00)
[2016-09-22] MEDS: COLCHICINE 0.6 MG TAB PO SCH (09:13)
[2016-09-22] MEDS: FAMOTIDINE 20 MG TAB PO SCH (09:13)
[2016-09-22] MEDS: ENOXAPARIN 40 MG/0.4 ML SYG SC SCH (09:18)
[2016-09-22 12:14] VITALS: BP 126/59; PULSE 62
[2016-09-22] MEDS: LORAZEPAM 2 MG INJ IV PRN (12:29)
--- NOTE | 2016-09-22 18:13 | DS ---
DATE OF ADMISSION: 09/11/2016 DATE OF DISCHARGE: 09/22/2016 ADDENDUM Please refer for full discharge summary from Dr. Coffman on 09/19/2016. BRIEF HISTORY: The patient is a 61-year-old female who underwent appendectomy by Dr. Meza for acu te appendicitis on 09/12/2016. In the postoperative period, patient recovered well, however, had a gout flareup and was given pain medication and colchicine, and patient will be transferred to [facility] further management. The patient had episodes of hypertension and was started on hydralazine. Also, the patient's home medications were resumed. The patient was monitored for 24 hours and had a stable blood pressure, controlled pain, no nausea, vomiting, and [facility]. CONDITION ON DISCHARGE: Hemodynamically stable. ACTIVITY: As patient tolerates. DIET: Two gram sodium, low-fat, low-cholesterol diet. MEDICATION ON DISCHARGE: 1. Dulcolax suppository p.r.n. for constipation. 2. Coreg 25 mg p.o. b.i.d. 3. Clonidine 0.2 mg p.o. t.i.d. 4. Colchicine 0.6 mg p.o. b.i.d. 5. Colace 100 mg p.o. b.i.d. 6. Pepcid 20 mg p.o. daily. 7. Hydralazine 25 mg p.o. q.6 hours for systolic blood pressure above 160. 8. [place] 5/325 one tablet p.o. q.4 hours p.r.n. for moderate pain, 2 tablets p.r.n. q.4 hours for s evere pain. 9. Spironolactone 25 mg p.o. daily. 10. Ambien 10 mg p.o. at bedtime p.r.n. for insomnia. 11. Ativan 0.5 mg q.6 hours p.r.n. for anxiety. The patient is to follow up with Dr. Meza in postoperative appointment in 1 week. Interdisciplinary plan of care was established for this patient. Plan of care was discussed with Dr Romana Weiner. Dictated By: MARVEL LUNDBERG LUMBER SORTER for TRU WEINER MD SR/NTS Conf#: [id number] [facility]#: [id number]
== END 2016-09-22 13:30 | DRG 343 ==
LOC: FTE 17:25 → MS1 23:06 → UNDOADMIN 23:06
PROVIDERS: ADMIT Internal Medicine; ATTEND Internal Medicine
PROC: 0WQF4ZZ Repair Abdominal Wall, Percutaneous Endoscopic Approach (ICD-10-PCS; 2016-09-12)
PROC: 0DTJ4ZZ Resection of Appendix, Percutaneous Endoscopic Approach (ICD-10-PCS; principal; 2016-09-12 08:00)
DX: K35.89 Other acute appendicitis (principal); I10 Essential (primary) hypertension; K42.9 Umbilical hernia without obstruction or gangrene; M10.9 Gout, unspecified; M20.42 Other hammer toe(s) (acquired), left foot; M20.41 Other hammer toe(s) (acquired), right foot; M23.207 Derangement of unspecified meniscus due to old tear or injury, left knee; E78.00 Pure hypercholesterolemia, unspecified; G56.01 Carpal tunnel syndrome, right upper limb
CPT/HCPCS: 36415; 74176; 80048; 80053; 81001; 81003; 83690; 85025; 85610; 85730; 86850; 86900; 86901; 88304; 96365; 96375; J0360; J0696; J1170; J1650; J2060; J2175; J2250; J2270; J2405; J2543; J2710; J3010; J3480; J7030

== ENCOUNTER 2016-11-04 16:24 | Emergency (ER) | payer OTHER ==
[~2016-11-04] VITALS: Wt 72.9 kg
[~2016-11-04 16:24] MED LIST changes: -CLIN-73 PO; +CLON0.2T5 PO; -CLON0.3T PO; +COLC0.6T6 PO; -COLCHICINE PO; -GEMF600T PO; -IND50 PO; -MECL12.574 PO; -NITR-58 PO; +SPIR25TA PO; -SPIR25TA76 PO; +ZOLP10TA PO
[2016-11-04] MEDS ORDERED: SOD CHLORIDE 0.9% 1,000 ML IV STA (19:17)
[2016-11-04] MEDS ORDERED: FAMOTIDINE 20 MG INJ IV ONE (19:30)
[2016-11-04 20:09] LABS: BASOPHILS % 0.1 % (0.0-2.0); EOSINOPHILS % 0.7 % (0.0-7.0); HEMATOCRIT 38.2 % (37.0-47.0); HEMOGLOBIN 12.8 g/dl (12.0-16.0); LYMPHOCYTES # 2.3 10^3/ul (0.8-2.9); LYMPHOCYTES % 44.5 % (15.0-51.0); MEAN CORPUSCULAR HEMOGLOBIN 28.3 pg (29.0-33.0); MEAN CORPUSCULAR HGB CONC 33.4 g/dl (32.0-37.0); MEAN CORPUSCULAR VOLUME 84.6 fl (82.0-101.0); MEAN PLATELET VOLUME 8.9 fl (7.4-10.4); MONOCYTE # 0.5 10^3/ul (0.3-0.9); MONOCYTES % 10.8 % (0.0-11.0); NEUTROPHIL # 2.2 10^3/ul (1.6-7.5); NEUTROPHILS % 43.9 % (39.0-77.0); PLATELET COUNT 149 10^3/UL (140-440); RED BLOOD COUNT 4.51 10^6/ul (4.20-5.40); RED CELL DISTRIBUTION WIDTH 15.7 % (11.5-14.5); UNCORRECTED WBC 5.1 10^3/ul (4.8-10.8); WHITE BLOOD COUNT 5.1 10^3/ul (4.8-10.8)
[2016-11-04 20:21] LABS: ALBUMIN 4.6 g/dl (3.3-4.9)
[2016-11-04 20:22] LABS: CONDITION 1; LH ANALYZER COMMENTS 1; POTASSIUM 3.8 mmol/L (3.5-5.1)
[2016-11-04] MEDS ORDERED: HYDR-3671 PO (20:22)
[2016-11-04 20:24] LABS: ALBUMIN/GLOBULIN RATIO 1.31; BILIRUBIN,INDIRECT 0.7 mg/dl (0-1.1); BILIRUBIN,TOTAL 0.7 mg/dl (0.2-1.3); CREATININE 1.24 mg/dl (0.44-1.00); TOTAL PROTEIN 8.1 g/dl (6.1-8.1)
[2016-11-04 20:25] LABS: CALCIUM 10.7 mg/dl (8.4-10.2)
[2016-11-04 20:48] LABS: ADD UMIC YES; URINE BILIRUBIN (Dip) NEGATIVE (NEGATIVE); URINE BLOOD (Dip) 1+ (NEGATIVE); URINE COLOR LT. YELLOW (YELLOW); URINE GLUCOSE (Dip) NEGATIVE (NEGATIVE); URINE KETONES (Dip) NEGATIVE (NEGATIVE); URINE LEUKOCYTE ESTERASE (Dip) 1+ (NEGATIVE); URINE NITRITE (Dip) NEGATIVE (NEGATIVE); URINE TOTAL PROTEIN (Dip) 2+ (NEGATIVE); URINE UROBILINOGEN (Dip) 0.2 E.U./dL (0.1-1.0)
[2016-11-04 21:02] LABS: BACTERIA,URINE FEW
[2016-11-04] MEDS ORDERED: SOD CHLORIDE 0.9% 500 ML IV STA (21:08)
[2016-11-04] MEDS ORDERED: CIPR500T4 PO (21:13)
--- NOTE | 2016-11-04 21:13 | ERD ---
ER Documentation Chief Complaint Date/Time DATE: 11/04/16 TIME: 21:10 Chief Complaint abdominal pain generalized for 10 days with nausea vomiting and diarrhea HPI This is a 61-year-old female presents to the emergency room for evaluation of diarrhea and abdominal cramping for the past 10 days. The patient states her abdominal cramping is localized to the lower portion of the abdomen with no radiation. She has not been on any medication for this and came to the ER today for evaluation. She also states that she has vomited multiple times at home. Denies any blood in her vomit or stool. ROS All systems reviewed and are negative except as per history of present illness. Medications Home Meds Active Scripts Colchicine* (Colcrys*) 0.6 Mg Tablet, 0.6 MG PO BID for 7 Days, TAB Prov:ERNESTO SHEPPARD Y 09/17/16 Hydrocodone Bit-Acetaminophen (Hydrocodone Bit-APAP) 5-325MG Tablet, 1 TAB PO Q4H Y for PAIN LEVEL 4-7 for 10 Days, #30 TAB Prov:ERNESTO SHEPPARD Y 09/15/16 Reported Medications Hydralazine Hcl* (Hydralazine Hcl*) 25 Mg Tab, 25 MG PO Q8, #90 TAB 11/04/16 Carvedilol* (Carvedilol*) 25 Mg Tablet, 25 MG PO BID, #60 TAB 09/11/16 Zolpidem Tartrate* (Ambien*) 10 Mg Tablet, 10 MG PO QHS Y for INSOMNIA, TAB 09/11/16 Clonidine Hcl* (Clonidine Hcl*) 0.2 Mg Tablet, 0.2 MG PO TID, TAB 09/11/16 Spironolactone* (Aldactone*) 25 Mg Tablet, 25 MG PO DAILY 04/11/13 Allergies Allergies: Coded Allergies: MARCELO Inhibitors (Verified Allergy, Unknown, 11/04/16) Penicillins (Verified Allergy, Unknown, 11/04/16) amlodipine (Verified Allergy, Unknown, 11/04/16) erythromycin base (Verified Allergy, Unknown, 11/04/16) latex (Verified Allergy, Unknown, 09/11/16) PMhx/Soc History of Surgery: Yes (R carpal tunnel, R foot surgery, appendectomy) Anesthesia Reaction: No Hx Neurological Disorder: No Hx Respiratory Disorders: No Hx Cardiac Disorders: Yes (left valve leak,HTN) Hx Psychiatric Problems: Yes (anxiety) Hx Miscellaneous Medical Probl: No Hx Alcohol Use: Yes (socially) Hx Substance Use: No Hx Tobacco Use: No Smoking Status: Never smoker Physical Exam Vitals Vital Signs Date Time Temp Pulse Resp B/P Pulse Ox O2 Delivery O2 Flow Rate FiO2 11/04/16 20:02 57 18 191/97 100 Room Air 11/04/16 16:30 99.2 71 20 177/87 98 Physical Exam INITIAL VITAL SIGNS: Reviewed by me GENERAL: The patient is well developed and appropriate for usual state of health in no apparent distress HEENT: Dry mucous members, pupils equal, round, and reactive to light. EOMI. There is no scleral icterus. NECK: C-spine is soft and supple, there is no meningismus. There is no cervical lymphadenopathy. LUNGS: Clear to auscultation bilaterally. There are no rales, wheezes or rhonchi. HEART: Regular rate and rhythm, no murmurs, clicks, rubs or gallops. ABDOMEN: Suprapubic tenderness to palpation, otherwise soft, non-tender, non- distended. There are bowel sounds in all four quadrants. No rebound or guarding. EXTREMITIES: There is no peripheral cyanosis or edema. No focal swelling or erythema. NEUROLOGICAL: The patient moves all four extremities with 5/5 strength. Cranial nerves II - XII are intact. Normal gait. Alert and oriented SKIN: There is no apparent rash or petechiae. HEME/LYMPHATIC: There is no evidence of excessive bruising or lymphedema. PSYCHIATRIC: The patient does not appear anxious or depressed. Result Diagram: 11/04/16194911/04/161949 Results 24 hrs Laboratory Tests Test 11/04/16 19:50 Alanine Aminotransferase (ALT/SGPT) 27IU/L Albumin 4.6g/dl Albumin/Globulin Ratio 1.31 Alkaline Phosphatase 94IU/L Anion Gap 21 Aspartate Amino Transf (AST/SGOT) 39IU/L Basophils # 0.010^3/ul Basophils % 0.1% Blood Morphology Comment Blood Urea Nitrogen 24mg/dl Calcium Level 10.7mg/dl Carbon Dioxide Level 23mmol/L Chloride Level 102mmol/L Creatinine 1.24mg/dl Direct Bilirubin 0.00mg/dl Eosinophils # 0.010^3/ul Eosinophils % 0.7% Globulin 3.50g/dl Glucose Level 111mg/dl Hematocrit 38.2% Hemoglobin 12.8g/dl Indirect Bilirubin 0.7mg/dl Lipase 402U/L Lymphocytes # 2.310^3/ul Lymphocytes % 44.5% Mean Corpuscular Hemoglobin 28.3pg Mean Corpuscular Hemoglobin Concent 33.4g/dl Mean Corpuscular Volume 84.6fl Mean Platelet Volume 8.9fl Monocytes # 0.510^3/ul Monocytes % 10.8% Neutrophils # 2.210^3/ul Neutrophils % 43.9% Nucleated Red Blood Cells # 0.010^3/ul Nucleated Red Blood Cells % 0.0/100WBC Platelet Count 72291^3/UL Potassium Level 3.8mmol/L Red Blood Count 4.5110^6/ul Red Cell Distribution Width 15.7% Sodium Level 142mmol/L Total Bilirubin 0.7mg/dl Total Protein 8.1g/dl Urine Bacteria FEW Urine Bilirubin NEGATIVE Urine Clarity CLEAR Urine Color LT. YELLOW Urine Epithelial Cells FEW Urine Glucose NEGATIVE% Urine Hemoglobin 1+ Urine Ketones NEGATIVE Urine Leukocyte Esterase 1+ Urine Microscopic RBC 2-5/HPF Urine Microscopic WBC 25-50/HPF Urine Nitrite NEGATIVE Urine Specific [place] 1.025 Urine Total Protein 2+ Urine Urobilinogen 0.2 E.U./dL Urine pH 5.5 White Blood Count 5.110^3/ul Current Medications Medications (Trade) Dose Ordered Sig/Albaro Route PRN Reason Start Time Stop Time Status Last Admin Dose Admin Sodium Chloride (NS) 1,000 ml @ 1,000 mls/hr Q1H STAT IV 11/04/16 19:17 11/04/16 20:16 DC 11/04/16 19:55 Famotidine (Pepcid Iv) 20 mg ONCE ONCE IV 11/04/16 19:30 11/04/16 19:31 DC 11/04/16 19:54 Procedures/MDM This 61-year-old female presents to the emergency room for evaluation of nausea vomiting and diarrhea. When I evaluated her she did have mild abdominal tenderness to palpation of the suprapubic region. Lab work was obtained including a urinalysis. Lab work does reveal minor renal insufficiency. Mild prerenal azotemia. The patient also has acute urinary tract infection. The patient was given 1/2 L of fluid IV. She was given 1 g Rocephin IV. She is tolerating p.o. fluids and will be discharged home at this time with a prescription for ciprofloxacin to take over the course of the next 7 days. Departure Diagnosis: Primary Impression: Acute cystitis Additional Impressions: Dehydration Nausea vomiting and diarrhea Condition: Stable DORENE CLIFFORD DO Nov 04, 2016 21:12
[2016-11-04] MEDS ORDERED: CEFTRIAXONE 1 GM/50 ML (PMX) 50 ML IVPB ONE (21:30)
[2016-11-04 22:07] VITALS: BP 184/78; PULSE 67; RESP 18
== END 2016-11-04 22:22 | disposition home or self-care (01) ==
LOC: E/R 16:24
DX: N30.00 Acute cystitis without hematuria (principal); E86.0 Dehydration; R11.2 Nausea with vomiting, unspecified; R19.7 Diarrhea, unspecified; I10 Essential (primary) hypertension; Z91.040 Latex allergy status
CPT/HCPCS: 36415; 80053; 81001; 83690; 85025; 96361; 96365; 96375; 99284; J0696; J7030; J7040; 81003

== ENCOUNTER 2016-12-02 12:06 | Outpatient (CLI) | payer OTHER ==
[~2016-12-02] VITALS: Ht 165.1 cm; Wt 78.6 kg
[~2016-12-02 12:06] MED LIST changes: +CIPR500T4 PO; +HYDR-3671 PO
[2016-12-02 12:09] VITALS: BP 151/71; PULSE 66; RESP 18; Ht 165.1 cm; Wt 78.6 kg
--- NOTE | 2016-12-02 12:31 | PN ---
Date/Time of Note Date/Time of Note DATE: 12/02/16 TIME: 12:18 Assessment/Plan Assessment/Plan Assessment/Plan [facility] Progress Note Date of Service: 12/02/16 Today's Impression & Plan: Overall doing well post op without major issues. No major wound problems. Abd benign. With above assessment, I've recommended the following for today: 1. F/u with PCP 2. F/u with us prn Thank you again for your great care of this very pleasant patient and wonderful family. If there are any questions, please feel free to call me at [phone]. TOTAL VISIT TIME: 20 minutes of which more than half was spent in [id number] discussion with the patient, possibly including family, as well as coordination of care between multiple physicians and providers. Disclaimer: Inadvertent spelling or grammatical errors are likely due to EHR/ dictation software use and do not reflect on the overall quality of patient care. Updated Clinical Summary: The patient is a very pleasant 61-year-old lady with multiple comorbid issues ( see below) admitted through the emergency department with diagnosis of acute appendicitis based on symptoms as well as CT scan. Patient reports having this pain for last 2 weeks and for this reason there is a small chance that this may not be appendicitis, but given the overall clinical picture, I believe that an appendectomy is indicated. I explained to the patient that there is a 5% chance that her appendix might be normal but that clinically, we have enough reason to offer her an operation. S/p an otherwise uncomplicated laparoscopic appendectomy and repair of an incidentally discovered umbilical hernia on 09/12 with findings of non-perforated acute on chronic retrocecal appendicitis. Comorbidities/PMHx List: 1. Acute on chronic appendicitis, s/p an otherwise uncomplicated laparoscopic appendectomy and repair of an incidentally discovered umbilical hernia on 09/12 with findings of non-perforated acute on chronic retrocecal appendicitis. 2. Arthritis 3. Bilateral lower extremity hammertoes 4. Torn meniscus in the left knee 5. Chronic back pain 6. Hypertension 7. Hypercholesterolemia 8. Recurrent dizziness None. Hypertriglyceridemia 10. Abnormal Pap smear at age 30 with a negative colposcopy 11. History of hemorrhoids 12. Diet-controlled diabetes in the past 13. BMI 27.8 14. Gout 15. Right carpal tunnel release 16. Toe surgeries on the right 17. Colonoscopy 02/28/2009 Subjective: No major events or complaints; no major abd pain; reports BM's normalized after surgery; no n/v/d; no sob or cp; + flatus; + BM and normal; + activity Objective: Vitals: See below Exam: GENERAL: On exam, the patient was sitting in a chair and appeared to be comfortable and in no acute distress. ABDOMEN: Soft, non-tender to palpation around the incisions. Incisions are clean , dry and intact without any evidence of erythema, edema, discharge, or hernia. There are no peritoneal signs or guarding. SKIN: Skin appears to be pink and feels warm to touch. NEUROLOGIC: Patient is awake, alert, and follows commands appropriately. Exam/Review of Systems Vital Signs Vitals Vital Signs Date Time Temp Pulse Resp B/P Pulse Ox O2 Delivery O2 Flow Rate FiO2 12/02/16 12:09 98.0 66 18 151/71 92 Room Air NUBIA VILLAR M.D. Dec 02, 2016 12:31
== END 2016-12-02 17:00 | disposition home or self-care (01) ==
LOC: HPC 12:06
PROVIDERS: ATTEND Transplant Surgery
DX: K35.80 Unspecified acute appendicitis (principal); M20.42 Other hammer toe(s) (acquired), left foot; M20.41 Other hammer toe(s) (acquired), right foot; S83.8X2D Sprain of other specified parts of left knee, subsequent encounter; X58.XXXD Exposure to other specified factors, subsequent encounter; I10 Essential (primary) hypertension; E78.5 Hyperlipidemia, unspecified; R42 Dizziness and giddiness; M54.9 Dorsalgia, unspecified
CPT/HCPCS: G0463

== ENCOUNTER 2017-02-10 06:09 | Day surgery (SDC) | payer OTHER ==
[~2017-02-10] VITALS: Ht 165.1 cm; Wt 81.1 kg
[2017-02-10] VITALS (16 sets, daily range): BP systolic 131–163; BP diastolic 67–83; PULSE 58–68; RESP 18; Ht 165.1 cm; Wt 81.1 kg
[~2017-02-10 06:09] MED LIST changes: +CEFAZOLIN 2 GM/50 ML (PMX) 50 ML IVPB ONE; -CIPR500T4 PO; -COLC0.6T6 PO; -HYDR-3671 PO
[2017-02-10] MEDS ORDERED: BUPIVACAINE 0.5% (SDV) 30 ML INJ ONE (06:57)
[2017-02-10] MEDS ORDERED: POLYMYXIN/BACITRACIN 1L IRRIG ONE (06:57)
[2017-02-10] MEDS ORDERED: LIDOCAINE 2% (MDV) 20 ML INJ ONE (07:27)
--- NOTE | 2017-02-10 07:32 | HPN ---
Date/Time of Note Date/Time of Note DATE: 02/10/17 TIME: 07:32 Interval H&P Admission Note Pt. seen H&P reviewed: No system changes VIANCA VILLAR DPM February 10, 2017 07:32
[2017-02-10] MEDS ORDERED: PROPOFOL 20 ML ONE (07:37)
[2017-02-10] MEDS ORDERED: MIDAZOLAM 1 MG/ML 2 ML INJ ONE (07:37)
[2017-02-10] MEDS ORDERED: FENTAnyl 50 MCG/ML VIAL ONE (07:48)
[2017-02-10] MEDS ORDERED: ONDANSETRON 4 MG INJ ONE (07:50)
[2017-02-10] MEDS ORDERED: FAMOTIDINE 20 MG INJ ONE (07:50)
[2017-02-10] MEDS ORDERED: CLINDAMYCIN 900 MG/D5W (PMX) 50 ML IVPB ONE (07:55)
[2017-02-10] MEDS: LIDOCAINE 2% (SDV) 5 ML INJ ONE ×2 (07:57→08:46)
[2017-02-10] MEDS ORDERED: DEXAMETHASONE 4 MG/ML 1 ML INJ ONE (07:59)
[2017-02-10] MEDS ORDERED: HYDROmorphONE (0.2 MG/ML) 10ML SYG IV PRN ×3 (08:30)
[2017-02-10] MEDS ORDERED: FENTAnyl 50 MCG/ML VIAL IV PRN ×3 (08:30)
[2017-02-10] MEDS ORDERED: ONDANSETRON 4 MG INJ IV PRN (08:30)
[2017-02-10] MEDS ORDERED: PROCHLORPERAZINE 10 MG INJ IV PRN (08:30)
[2017-02-10] MEDS ORDERED: DIPHENHYDRAMINE 50 MG INJ IV PRN (08:30)
[2017-02-10] MEDS ORDERED: MEPERIDINE 25 MG INJ IV PRN (08:30)
[2017-02-10] MEDS ORDERED: OXYCODONE/ACETAMINOPHEN (5/325) TAB PO PRN ×2 (08:30)
[2017-02-10] MEDS ORDERED: hydrALAzine 20 MG INJ ONE (09:25)
[2017-02-10] MEDS ORDERED: hydrALAzine 20 MG INJ IV PRN (09:30)
[2017-02-10] MEDS ORDERED: OXYCODONE/ACETAMINOPHEN (5/325) TAB PO ONE (15:00)
--- NOTE | 2017-02-10 20:55 | RADRPT ---
PROCEDURE: XR Foot. CLINICAL INDICATION: Postop follow-up. TECHNIQUE: Left foot x-rays, three views. COMPARISON: 03/23/2014. FINDINGS: Bone density appears decreased. There are two surgical pins which traverse the longitudinal axis of the second and third toes. Alignment is well maintained. The remainder of the osseous structures are unremarkable. Mild degenerative changes of the dorsum of the midfoot are present. Soft tissues a re unremarkable. IMPRESSION: Surgical changes of the second and third toes without evidence of hardware complication. Mild degenerative changes of the dorsum of the midfoot. RPTAT: [facility] .Astrdi Wooten MD, MD Date Time Electronically viewed and signed by .Astrid Wooten MD, MD on 02/10/2017 20:55 .T/
== END 2017-02-10 18:08 | disposition home or self-care (01) ==
LOC: SDS 06:09
PROVIDERS: ATTEND Podiatrist Foot & Ankle Surgery
DX: M20.42 Other hammer toe(s) (acquired), left foot (principal); I10 Essential (primary) hypertension; E78.5 Hyperlipidemia, unspecified; F41.9 Anxiety disorder, unspecified
CPT/HCPCS: 28285; 73630; 82962; 88304; 88311; C1713; J0360; J1100; J2250; J2405; J3010; J1170

== ENCOUNTER 2018-08-15 07:26 | Emergency (ER) | END 2018-08-15 09:26 | disposition home or self-care (01) ==